=== PATIENT | female | born 1940 | race Caucasian/White ===

== ENCOUNTER 2019-04-13 05:57 | Inpatient (IN) | payer BC, MEDICARE ==
[2019-04-12 10:46] VITALS: BMI 23.3
[2019-04-13] MEDS ORDERED: Midazolam HCl 2 mg/2 ml Vial ONE (06:02)
[2019-04-13] MEDS ORDERED: Phenylephrine HCL 10 MG/ML VIAL ONE (06:02)
[2019-04-13] MEDS ORDERED: Ropivacaine 0.2% HCl/PF 20 ML ONE (06:02)
[2019-04-13] MEDS ORDERED: Fentanyl 100 MCG/2 ML VIAL ONE (06:02)
[2019-04-13] MEDS ORDERED: Lidocaine 2% Jelly 5 ML TUBE ONE (06:02)
[2019-04-13] MEDS ORDERED: Tranexamic Acid 1,000 MG/10 ML VIAL ONE (06:17)
[2019-04-13] MEDS ORDERED: Levofloxacin 500 mg/D5W 100 ml Premix Bag ONE (06:17)
[2019-04-13] MEDS ORDERED: Sodium Chloride 0.9% 100 ML ONE (06:17)
[2019-04-13] MEDS ORDERED: Acetaminophen 500 MG TAB PO PRN (07:34)
[2019-04-13] MEDS ORDERED: Naloxone HCl 0.4 mg/ml Vial IVP PRN (07:45)
[2019-04-13] MEDS ORDERED: Bupivacaine 0.25% 10 ML VIAL EPIDURAL PRN (07:45)
[2019-04-13] MEDS ORDERED: Promethazine HCl 25 MG SUPP PR PRN (07:45)
[2019-04-13] MEDS ORDERED: Promethazine HCl 25 MG/ML VIAL IM PRN ×3 (07:45→08:54)
[2019-04-13] MEDS ORDERED: HYDROcodone/Acetaminophen 5/325 mg Tablet PO PRN ×2 (07:45)
[2019-04-13] MEDS ORDERED: Ondansetron PF 4 MG/2 ML Vial IVP PRN ×2 (07:45→08:54)
[2019-04-13] MEDS ORDERED: Naloxone HCl 0.4 mg/ml Vial IV PRN (07:45)
[2019-04-13] MEDS ORDERED: diphenhydrAMINE 50 MG/ML VIAL IVP PRN (07:45)
[2019-04-13] MEDS ORDERED: Hydrocerin (Eucerin) Cream 120 gm Jar TOP PRN (07:45)
[2019-04-13] MEDS ORDERED: diphenhydrAMINE 50 MG/ML VIAL IM PRN (07:45)
[2019-04-13] MEDS ORDERED: diphenhydrAMINE 25 MG CAP PO PRN ×2 (07:45→08:54)
[2019-04-13] MEDS ORDERED: traMADol HCl 50 MG TAB PO PRN ×2 (07:45)
[2019-04-13] MEDS ORDERED: Meperidine HCl/PF 25 MG/ML VIAL SLOW IVP PRN ×2 (08:50)
[2019-04-13] MEDS ORDERED: Promethazine HCl 25 MG/ML VIAL SLOW IVP PRN (08:50)
[2019-04-13] MEDS ORDERED: Ondansetron HCl/PF 4 MG/2 ML Vial IVP PRN (08:50)
[2019-04-13] MEDS ORDERED: Ketorolac Tromethamine 30 MG/ML VIAL IVP PRN (08:50)
[2019-04-13] MEDS ORDERED: HYDROcodone/Acetaminophen 10/325 mg Tablet PO PRN ×2 (08:54)
[2019-04-13] MEDS ORDERED: Acetaminophen 325 MG TAB PO PRN (08:54)
[2019-04-13] MEDS ORDERED: Zolpidem Tartrate 5 MG TAB PO PRN (08:54)
[2019-04-13] MEDS ORDERED: CALCIUM CARB CIT PO SCH (09:00)
[2019-04-13] MEDS ORDERED: Non-Formulary Item 1 EACH (Multivitamin [Multivitamins] 1 CAP) PO SCH (09:00)
[2019-04-13] MEDS ORDERED: MAGNESIUM OX PO SCH (09:00)
[2019-04-13] MEDS ORDERED: Acetaminophen 500 MG TAB ONE (09:13)
--- NOTE | 2019-04-13 09:13 | RAD ---
2 views right hip: 04/13/2019 COMPARISON: None HISTORY: Evaluate hip following surgery FINDINGS: Postoperative gas is noted lateral to the proximal right femur. Right hip arthroplasty pres ent with no evidence for hardware failure. No acute fracture or dislocation. IMPRESSION: Radiographic evidence of recent right total hip arthroplasty.
[2019-04-13] MEDS ORDERED: Acetaminophen 500 MG TAB PO SCH (09:30)
[2019-04-13] MEDS ORDERED: PHENYLEPHRINE-NS 100 MCG/ML 10 ML SYRINGE ONE (10:02)
[2019-04-13] MEDS ORDERED: Ondansetron PF 4 MG/2 ML Vial ONE ×2 (10:02)
[2019-04-13] MEDS ORDERED: ePHEDrine/0.9% NaCl/PF SYRINGE 50 mg/10 ml ONE (10:02)
[2019-04-13] MEDS ORDERED: Lidocaine 1.5% w/Epi 1:200K 30 ML VIAL (Epid Use) ONE (10:02)
[2019-04-13] MEDS ORDERED: Dexamethasone 20 MG/5 ML VIAL ONE (10:02)
[2019-04-13] MEDS ORDERED: Glycopyrrolate 0.2 MG/ML 5 ML SYRINGE ONE (10:02)
[2019-04-13] MEDS ORDERED: Rocuronium Bromide 10 MG/ML (10ML VIAL) ONE (10:02)
[2019-04-13] MEDS ORDERED: PROPOFOL 200 MG/20 ML VIAL ONE (10:02)
[2019-04-13] MEDS: Aspirin 81 mg Enteric Coated Tablet PO SCH ×2 (10:18→19:57)
[2019-04-13] MEDS: Amlodipine 5 MG TAB PO SCH ×2 (11:04→19:58)
[2019-04-13] MEDS: Ketorolac Tromethamine 30 MG/ML VIAL IVP SCH ×3 (11:46→23:13)
--- NOTE | 2019-04-13 12:33 | PDOC.HOSPP ---
- Subjective Encounter Date: 04/13/19 Encounter Time: 07:45 Subjective: Patient seen and examined. No new complaints. pt is admitted for right hip replacement, done without problem, consulted for medical management, family bedside after surgery, has epidural in place - Objective Vital Signs & Weight: Vital Signs (12 hours) Temp Pulse Resp BP Pulse Ox 04/13/19 09:45 97.5 F L 58 L 18 131/81 96 Weight Weight 128 lb Hospitalist ROS - Review of Systems Constitutional: denies: fever, chills, sweats, weakness, malaise, other Eyes: denies: pain, vision change, conjunctivae inflammation, eyelid inflammation, redness, other ENT: denies: ear pain, ear discharge, nose pain, nose discharge, nose congestion , mouth pain, mouth swelling, throat pain, throat swelling, other Respiratory: denies: cough, dry, shortness of breath, hemoptysis, SOB with excertion, pleuritic pain, sputum, wheezing, other Cardiovascular: denies: chest pain, palpitations, orthopnea, paroxysmal noc. dyspnea, edema, light headedness, other Gastrointestinal: denies: nausea, vomiting, abdominal pain, diarrhea, constipation, melena, hematochezia, other Genitourinary: denies: dysuria, frequency, incontinence, hematuria, retention, other Musculoskeletal: denies: neck pain, shoulder pain, arm pain, back pain, hand pain, leg pain, foot pain, other Skin: denies: rash, lesions, isatu, bruising, other - Medication Medications: Active Medications Generic Name Dose Route Start Last Admin Trade Name Freq PRN Reason Stop Dose Admin Amlodipine Besylate 5 mg 04/13/19 09:00 04/13/19 11:04 Norvasc PO Not Given BID [facility] Aspirin 81 mg 04/13/19 09:00 04/13/19 10:18 Ecotrin PO Not Given BID [facility] Ketorolac Tromethamine 15 mg 04/13/19 12:00 04/13/19 11:46 Toradol IVP 04/15/19 06:01 15 mg Q6HR YOGESH Administration Metoprolol Succinate 50 mg 04/13/19 09:00 04/13/19 11:05 Toprol Xl PO Not Given BID [facility] Sertraline HCl 100 mg 04/13/19 09:00 04/13/19 11:05 Zoloft PO Not Given DAILY YOGESH - Exam General Appearance: NAD, awake alert Eye: PERRL, anicteric sclera ENT: normocephalic atraumatic, no oropharyngeal lesions Neck: supple, symmetric, no JVD, no thyromegaly Heart: RRR, no murmur, no gallops, no rubs, normal peripheral pulses Respiratory: CTAB, no wheezes, no rales, no ronchi Gastrointestinal: soft, non-tender, non-distended, normal bowel sounds Extremities: no cyanosis, no clubbing, no edema Extremities - other findings: surgical site with dressing, epidural in place, navas+ Skin: normal turgor, no lesions Neurological: cranial nerve grossly intact, normal sensation to touch, no focal deficits Musculoskeletal: normal tone, normal strength Psychiatric: normal affect, normal behavior, A&O x 3 Hosp A/P (1) Status post right hip replacement Code(s): Z96.641 - PRESENCE OF RIGHT ARTIFICIAL HIP JOINT Status: Acute (2) Hypertension Code(s): I10 - ESSENTIAL (PRIMARY) HYPERTENSION Status: Chronic (3) Anxiety and depression Code(s): F41.9 - ANXIETY DISORDER, UNSPECIFIED; F32.9 - MAJOR DEPRESSIVE DISORDER, SINGLE EPISODE, UNSPECIFIED Status: Chronic - Plan old records reviewed/req 04/13/19 continue epidural as per anesthesia pt is overall medically stable, discussed with family bedside medication reviewed and continue to provide symptomatic treatment and supportive care
[2019-04-13] MEDS: Losartan 25 MG TAB PO SCH (19:57)
[2019-04-13] MEDS ORDERED: Vancomycin HCl 1 GM in Premix Bag 1 BAG IVPB SCH (20:00)
[2019-04-13] MEDS: fentaNYL Citrate/PF 500 MCG, Bupivacaine 10 ML in Sodium Chloride 0.9% 80 ML EPIDURAL SCH (20:45)
[2019-04-13] MEDS: Zolpidem Tartrate 5 MG TAB PO PRN (20:52)
[2019-04-13] MEDS ORDERED: ZOLPIDEM TARTRATE PO SCH (21:00)
[2019-04-14 05:09] LABS: Hemoglobin 9.8 g/dL (12.0-16.0); Mean Corpuscular HGB CONC 32.9 g/dL (32.0-36.0); Mean Corpuscular Hemoglobin 29.5 pg (27.0-31.0); Mean Corpuscular Volume 89.6 fL (78.0-98.0); Mean Platelet Volume 7.7 fL (7.4-10.4); Platelet Count 163 thou/uL (130-400); RBC Distribution Width 12.3 % (11.5-14.5); Red Blood Cell (RBC) Count 3.33 mill/uL (4.20-5.40); White Blood Cell (WBC) Count 7.9 thou/uL (4.8-10.8)
[2019-04-14] MEDS: Ketorolac Tromethamine 30 MG/ML VIAL IVP SCH ×4 (05:20→23:04)
--- NOTE | 2019-04-14 09:25 | PRG ---
DATE OF SERVICE: 04/14/2019 SUBJECTIVE: Margo is a 78-year-old female, postop day 1 from right total hip arthroplasty. She is doing relatively well, and she is comfortable with her epidural. She has no complaints at this point. OBJECTIVE: VITAL SIGNS: Temperature 98, pulse 71, respiratory rate is 16 and nonlabored, blood pressure is 112/68. GENERAL: She is alert and oriented to person, place, time, and situation. Responds appropriately with examiner. EXTREMITIES: Incision is clean. No erythema. No strike through. No leg length discrepancy. LABORATORY DATA: Hemoglobin and hematocrit 9.8 and 29.8. IMPRESSION: 1. A 78-year-old female, postop day 1, right total hip arthroplasty. 2. Mild postoperative asymptomatic anemia. PLAN: Continue current care. Probable discharge to home tomorrow. Job ID: [id number]
[2019-04-14] MEDS: Aspirin 81 mg Enteric Coated Tablet PO SCH ×2 (09:31→19:48)
[2019-04-14] MEDS: Ferrous Gluconate 324 MG TAB PO SCH ×2 (09:31→17:16)
[2019-04-14] MEDS: Multivitamin W/ Minerals 1 TAB PO SCH (09:32)
[2019-04-14] MEDS: Senokot S 8.6-50 MG TAB PO SCH ×2 (09:32→19:48)
[2019-04-14] MEDS: Amlodipine 5 MG TAB PO SCH ×2 (09:32→19:48)
[2019-04-14] MEDS: fentaNYL Citrate/PF 500 MCG, Bupivacaine 10 ML in Sodium Chloride 0.9% 80 ML EPIDURAL SCH ×2 (10:06→20:28)
--- NOTE | 2019-04-14 10:07 | PDOC.HOSPP ---
- Subjective Encounter Date: 04/14/19 Encounter Time: 08:10 Subjective: Patient seen and examined. No new complaints. No overnight events - Objective Vital Signs & Weight: Vital Signs (12 hours) Temp Pulse Resp BP BP Pulse Ox 04/14/19 09:32 71 04/14/19 07:05 98.0 F 71 16 112/68 04/14/19 05:07 98.3 F 81 14 127/71 93 L 04/14/19 00:11 98.3 F 75 16 122/69 94 L Weight Weight 128 lb I&O: 04/13/19 04/14/19 04/15/19 06:59 06:59 06:59 Intake Total 1725 Output Total 300 Balance 1425 Result Diagrams: 04/14/19 04:38 Hospitalist ROS - Review of Systems ENT: denies: ear pain, ear discharge, nose pain, nose discharge, nose congestion , mouth pain, mouth swelling, throat pain, throat swelling, other Respiratory: denies: cough, dry, shortness of breath, hemoptysis, SOB with excertion, pleuritic pain, sputum, wheezing, other Cardiovascular: denies: chest pain, palpitations, orthopnea, paroxysmal noc. dyspnea, edema, light headedness, other Gastrointestinal: denies: nausea, vomiting, abdominal pain, diarrhea, constipation, melena, hematochezia, other Genitourinary: denies: dysuria, frequency, incontinence, hematuria, retention, other Musculoskeletal: denies: neck pain, shoulder pain, arm pain, back pain, hand pain, leg pain, foot pain, other - Medication Medications: Active Medications Generic Name Dose Route Start Last Admin Trade Name Tien PRN Reason Stop Dose Admin Amlodipine Besylate 5 mg 04/13/19 09:00 04/14/19 09:32 Norvasc PO 5 mg BID YOGESH Administration Aspirin 81 mg 04/13/19 09:00 04/14/19 09:31 Ecotrin PO 81 mg BID YOGESH Administration Ferrous Gluconate 324 mg 04/14/19 08:00 04/14/19 09:31 Fergon PO 324 mg BID-WM YOGESH Administration Fentanyl Citrate 500 mcg/ 100 mls @ 0 mls/hr 04/13/19 07:45 04/13/19 20:45 Bupivacaine HCl 10 ml/ Sodium EPIDURAL 100 mls Chloride INF YOGESH Administration As Directed Iron/Minerals/Multivitamins 1 tab 02/01/20 09:00 04/14/19 09:32 Theragran M PO 1 tab DAILY YOGESH Administration Ketorolac Tromethamine 15 mg 04/13/19 12:00 04/14/19 05:20 Toradol IVP 04/15/19 06:01 15 mg Q6HR YOGESH Administration Losartan Potassium 50 mg 04/13/19 21:00 04/13/19 19:57 Cozaar PO Not Given HS YOGESH Metoprolol Succinate 50 mg 04/13/19 09:00 04/14/19 09:32 Toprol Xl PO 50 mg BID YOGESH Administration Senna/Docusate Sodium 2 tab 04/14/19 09:00 04/14/19 09:32 Senokot S PO 2 tab BID YOGESH Administration Sertraline HCl 100 mg 04/13/19 09:00 04/14/19 09:32 Zoloft PO 100 mg DAILY YOGESH Administration Zolpidem Tartrate 5 mg 04/13/19 07:45 04/13/19 20:52 Ambien PO 5 mg HSPRN PRN Administration Insomnia - Exam General Appearance: NAD, awake alert Eye: PERRL, anicteric sclera ENT: normocephalic atraumatic, no oropharyngeal lesions Neck: supple, symmetric, no JVD, no thyromegaly Heart: RRR, no murmur, no gallops, no rubs, normal peripheral pulses Respiratory: CTAB, no wheezes, no rales, no ronchi, normal chest expansion Gastrointestinal: soft, non-tender, non-distended, normal bowel sounds Extremities: no cyanosis, no clubbing, no edema Skin: normal turgor, no lesions Neurological: no focal deficits Musculoskeletal: normal tone, normal strength, no muscle wasting Psychiatric: normal affect, normal behavior Hosp A/P (1) Status post right hip replacement Code(s): Z96.641 - PRESENCE OF RIGHT ARTIFICIAL HIP JOINT Status: Acute (2) Hypertension Code(s): I10 - ESSENTIAL (PRIMARY) HYPERTENSION Status: Chronic (3) Anxiety and depression Code(s): F41.9 - ANXIETY DISORDER, UNSPECIFIED; F32.9 - MAJOR DEPRESSIVE DISORDER, SINGLE EPISODE, UNSPECIFIED Status: Chronic - Plan old records reviewed/req, PT/OT 04/13/19 continue epidural as per anesthesia pt is overall medically stable, discussed with family bedside medication reviewed and continue to provide symptomatic treatment and supportive care 04/14/19 continue epidural as per anesthesia overall doing better and stable PT/OT
[2019-04-14] MEDS: Losartan 25 MG TAB PO SCH (19:49)
[2019-04-14] MEDS: Zolpidem Tartrate 5 MG TAB PO PRN (20:28)
[2019-04-15 05:37] LABS: Hemoglobin 9.4 g/dL (12.0-16.0); Mean Corpuscular HGB CONC 32.4 g/dL (32.0-36.0); Mean Corpuscular Volume 89.5 fL (78.0-98.0); Mean Platelet Volume 8.2 fL (7.4-10.4); Platelet Count 146 thou/uL (130-400); RBC Distribution Width 12.3 % (11.5-14.5); Red Blood Cell (RBC) Count 3.25 mill/uL (4.20-5.40)
[2019-04-15] MEDS: Ketorolac Tromethamine 30 MG/ML VIAL IVP SCH (06:03)
[2019-04-15] MEDS: Ferrous Gluconate 324 MG TAB PO SCH ×2 (09:00→14:02)
[2019-04-15] MEDS: Aspirin 81 mg Enteric Coated Tablet PO SCH ×2 (09:00→20:20)
[2019-04-15] MEDS: Senokot S 8.6-50 MG TAB PO SCH ×2 (09:01→20:17)
[2019-04-15] MEDS: Multivitamin W/ Minerals 1 TAB PO SCH (09:01)
[2019-04-15] MEDS: Amlodipine 5 MG TAB PO SCH ×2 (09:01→20:20)
[2019-04-15] MEDS: fentaNYL Citrate/PF 500 MCG, Bupivacaine 10 ML in Sodium Chloride 0.9% 80 ML EPIDURAL SCH (09:03)
--- NOTE | 2019-04-15 14:18 | PDOC.HOSPP ---
- Subjective Encounter Date: 04/15/19 Encounter Time: 08:15 Subjective: Patient seen and examined. No new complaints. No overnight events - Objective Vital Signs & Weight: Vital Signs (12 hours) Temp Pulse Resp BP Pulse Ox 04/15/19 12:00 91 L 04/15/19 11:54 98.1 F 65 18 134/60 91 L 04/15/19 09:01 62 04/15/19 08:00 92 L 04/15/19 07:18 98.2 F 62 16 120/75 92 L 04/15/19 03:51 98 F 61 16 104/55 L 92 L Weight Weight 128 lb I&O: 04/14/19 04/15/19 04/16/19 06:59 06:59 06:59 Intake Total 1725 845 Output Total 300 350 Balance 1425 495 Result Diagrams: 04/15/19 05:11 Hospitalist ROS - Review of Systems ENT: denies: ear pain, ear discharge, nose pain, nose discharge, nose congestion , mouth pain, mouth swelling, throat pain, throat swelling, other Respiratory: denies: cough, dry, shortness of breath, hemoptysis, SOB with excertion, pleuritic pain, sputum, wheezing, other Cardiovascular: denies: chest pain, palpitations, orthopnea, paroxysmal noc. dyspnea, edema, light headedness, other Gastrointestinal: denies: nausea, vomiting, abdominal pain, diarrhea, constipation, melena, hematochezia, other Genitourinary: denies: dysuria, frequency, incontinence, hematuria, retention, other Musculoskeletal: denies: neck pain, shoulder pain, arm pain, back pain, hand pain, leg pain, foot pain, other - Medication Medications: Active Medications Generic Name Dose Route Start Last Admin Trade Name Freq PRN Reason Stop Dose Admin Acetaminophen 650 mg 04/13/19 08:54 04/14/19 17:17 Tylenol PO 650 mg Q4H PRN Administration Headache/Fever or Pain Hydrocodone Bitart/Acetaminophen 1 tab 04/13/19 07:45 04/15/19 14:01 [place] 5/325 PO 1 tab Q4H PRN Administration Mild Pain 1-3 Amlodipine Besylate 5 mg 04/13/19 09:00 04/15/19 09:01 Norvasc PO 5 mg BID YOGESH Administration Aspirin 81 mg 04/13/19 09:00 04/15/19 09:00 Ecotrin PO 81 mg BID YOGESH Administration Ferrous Gluconate 324 mg 04/14/19 08:00 04/15/19 14:02 Fergon PO 324 mg BID-WM YOGESH Administration Fentanyl Citrate 500 mcg/ 100 mls @ 0 mls/hr 04/13/19 07:45 04/15/19 09:03 Bupivacaine HCl 10 ml/ Sodium EPIDURAL 100 mls Chloride INF YOGESH Administration As Directed Iron/Minerals/Multivitamins 1 tab 04/14/19 09:00 04/15/19 09:01 Theragran M PO 1 tab DAILY YOGESH Administration Losartan Potassium 50 mg 04/13/19 21:00 04/14/19 19:49 Cozaar PO Not Given HS YOGESH Metoprolol Succinate 50 mg 04/13/19 09:00 04/15/19 09:00 Toprol Xl PO 50 mg BID YOGESH Administration Ondansetron HCl 4 mg 04/13/19 08:54 04/14/19 17:18 Zofran IVP 4 mg Q6H PRN Administration Nausea/Vomiting Senna/Docusate Sodium 2 tab 04/14/19 09:00 04/15/19 09:01 Senokot S PO 2 tab BID YOGESH Administration Sertraline HCl 100 mg 04/13/19 09:00 04/15/19 09:00 Zoloft PO 100 mg DAILY YOGESH Administration Zolpidem Tartrate 5 mg 04/13/19 07:45 04/14/19 20:28 Ambien PO 5 mg HSPRN PRN Administration Insomnia - Exam General Appearance: NAD, awake alert Eye: PERRL, anicteric sclera ENT: normocephalic atraumatic, no oropharyngeal lesions Neck: supple, symmetric, no JVD Heart: RRR, no murmur, no gallops, no rubs Respiratory: CTAB, no wheezes, no rales, no ronchi Gastrointestinal: soft, non-tender, non-distended, normal bowel sounds Extremities: no cyanosis, no clubbing, no edema Skin: normal turgor, no lesions Neurological: no focal deficits Musculoskeletal: normal tone, normal strength Psychiatric: normal affect, normal behavior Hosp A/P (1) Status post right hip replacement Code(s): Z96.641 - PRESENCE OF RIGHT ARTIFICIAL HIP JOINT Status: Acute (2) Hypertension Code(s): I10 - ESSENTIAL (PRIMARY) HYPERTENSION Status: Chronic (3) Anxiety and depression Code(s): F41.9 - ANXIETY DISORDER, UNSPECIFIED; F32.9 - MAJOR DEPRESSIVE DISORDER, SINGLE EPISODE, UNSPECIFIED Status: Chronic - Plan old records reviewed/req 04/13/19 continue epidural as per anesthesia pt is overall medically stable, discussed with family bedside medication reviewed and continue to provide symptomatic treatment and supportive care 04/14/19 continue epidural as per anesthesia overall doing better and stable PT/OT 04/15/19 stable medically discharge per primary team will follow while in hospital
--- NOTE | 2019-04-15 15:09 | PRG ---
DATE OF SERVICE: 04/15/2019 SUBJECTIVE: Margo is a 78-year-old female, postop day 2 from right total hip arthroplasty. At the time of this dictation, she has had her epidural out and Bowman has been removed. She has not urinated at this point but her pains were pretty well controlled. OBJECTIVE: VITAL SIGNS: Temperature 98.1, pulse 65, respiratory rate 18, blood pressure 134/60. GENERAL: She is alert, oriented, responsive and appropriate with examiner. Nonfocal. Incision is clean. No strike through and she is neurovascularly intact. No malrotation or shortening. Hemoglobin and hematocrit 9.4 and 29.9. IMPRESSION: 1. A 78-year-old female, postop day 2, right total hip arthroplasty, doing well. 2. Asymptomatic hemorrhagic anemia. PLAN: Continue current care. We will keep her over tonight to establish good oral pain control. Also make sure she urinates which she has not done yet and recheck in the morning and probable discharge to home with family tomorrow. Job ID: [id number]
[2019-04-15] MEDS: Losartan 25 MG TAB PO SCH (20:20)
[2019-04-15] MEDS: Zolpidem Tartrate 5 MG TAB PO PRN (20:20)
[2019-04-16 05:21] LABS: Mean Corpuscular HGB CONC 32.2 g/dL (32.0-36.0); Mean Corpuscular Hemoglobin 28.4 pg (27.0-31.0); Mean Corpuscular Volume 88.1 fL (78.0-98.0); Mean Platelet Volume 8.6 fL (7.4-10.4); Platelet Count 174 thou/uL (130-400); RBC Distribution Width 12.3 % (11.5-14.5); Red Blood Cell (RBC) Count 3.53 mill/uL (4.20-5.40); White Blood Cell (WBC) Count 11.6 thou/uL (4.8-10.8)
[2019-04-16] MEDS: Amlodipine 5 MG TAB PO SCH ×2 (08:33→12:15)
[2019-04-16] MEDS: Ferrous Gluconate 324 MG TAB PO SCH (08:33)
[2019-04-16] MEDS: Aspirin 81 mg Enteric Coated Tablet PO SCH (08:33)
[2019-04-16] MEDS: Multivitamin W/ Minerals 1 TAB PO SCH (08:33)
[2019-04-16] MEDS: Senokot S 8.6-50 MG TAB PO SCH (08:34)
--- NOTE | 2019-04-16 10:51 | PDOC.HOSPP ---
- Subjective Encounter Date: 04/16/19 Encounter Time: 07:50 Subjective: Patient seen and examined. No new complaints. No overnight events - Objective Vital Signs & Weight: Vital Signs (12 hours) Temp Pulse Resp BP Pulse Ox 04/16/19 08:45 98.3 F 61 18 105/64 95 04/16/19 03:56 98.3 F 65 16 103/56 L 93 L 04/15/19 23:51 99.3 F 77 16 136/66 95 Weight Weight 128 lb I&O: 04/15/19 04/16/19 04/17/19 06:59 06:59 06:59 Intake Total 845 1610 Output Total 350 550 Balance 495 1060 Result Diagrams: 04/16/19 04:57 Hospitalist ROS - Review of Systems ENT: denies: ear pain, ear discharge, nose pain, nose discharge, nose congestion , mouth pain, mouth swelling, throat pain, throat swelling, other Respiratory: denies: cough, dry, shortness of breath, hemoptysis, SOB with excertion, pleuritic pain, sputum, wheezing, other Cardiovascular: denies: chest pain, palpitations, orthopnea, paroxysmal noc. dyspnea, edema, light headedness, other Gastrointestinal: denies: nausea, vomiting, abdominal pain, diarrhea, constipation, melena, hematochezia, other Genitourinary: denies: dysuria, frequency, incontinence, hematuria, retention, other Musculoskeletal: denies: neck pain, shoulder pain, arm pain, back pain, hand pain, leg pain, foot pain, other - Medication Medications: Active Medications Generic Name Dose Route Start Last Admin Trade Name Freq PRN Reason Stop Dose Admin Acetaminophen 650 mg 04/13/19 08:54 04/14/19 17:17 Tylenol PO 650 mg Q4H PRN Administration Headache/Fever or Pain Hydrocodone Bitart/Acetaminophen 1 tab 04/13/19 07:45 04/15/19 14:01 [place] 5/325 PO 1 tab Q4H PRN Administration Mild Pain 1-3 Hydrocodone Bitart/Acetaminophen 2 tab 04/13/19 07:45 04/15/19 22:05 [place] 5/325 PO 2 tab Q4H PRN Administration For Moderate Pain 4-6 Amlodipine Besylate 5 mg 04/13/19 09:00 04/15/19 20:20 Norvasc PO 5 mg BID YOGESH Administration Aspirin 81 mg 04/13/19 09:00 04/16/19 08:33 Ecotrin PO 81 mg BID YOGESH Administration Diphenhydramine HCl 25 mg 04/13/19 07:45 04/15/19 20:20 Benadryl PO 25 mg Q3H PRN Administration Itching Ferrous Gluconate 324 mg 04/14/19 08:00 04/16/19 08:33 Fergon PO 324 mg BID-WM YOGESH Administration Fentanyl Citrate 500 mcg/ 100 mls @ 0 mls/hr 04/13/19 07:45 04/15/19 09:03 Bupivacaine HCl 10 ml/ Sodium EPIDURAL 100 mls Chloride INF YOGESH Administration As Directed Iron/Minerals/Multivitamins 1 tab 04/14/19 09:00 04/16/19 08:33 Theragran M PO 1 tab DAILY YOGESH Administration Losartan Potassium 50 mg 04/13/19 21:00 04/15/19 20:20 Cozaar PO 50 mg HS YOGESH Administration Metoprolol Succinate 50 mg 04/13/19 09:00 04/15/19 20:20 Toprol Xl PO 50 mg BID YOGESH Administration Ondansetron HCl 4 mg 04/13/19 08:54 04/14/19 17:18 Zofran IVP 4 mg Q6H PRN Administration Nausea/Vomiting Senna/Docusate Sodium 2 tab 04/14/19 09:00 04/16/19 08:34 Senokot S PO Not Given BID YOGESH Sertraline HCl 100 mg 04/13/19 09:00 04/16/19 08:33 Zoloft PO 100 mg DAILY YOGESH Administration Zolpidem Tartrate 5 mg 04/13/19 07:45 04/15/19 20:20 Ambien PO 5 mg HSPRN PRN Administration Insomnia - Exam General Appearance: NAD, awake alert Eye: PERRL, anicteric sclera ENT: normocephalic atraumatic, no oropharyngeal lesions Neck: supple, symmetric, no JVD Heart: RRR, no murmur, no gallops, no rubs Respiratory: CTAB, no wheezes, no rales, no ronchi Gastrointestinal: soft, non-tender, non-distended, normal bowel sounds Extremities: no cyanosis, no clubbing, no edema Skin: normal turgor, no lesions Neurological: no focal deficits Musculoskeletal: normal tone, normal strength Psychiatric: normal affect, normal behavior Hosp A/P (1) Status post right hip replacement Code(s): Z96.641 - PRESENCE OF RIGHT ARTIFICIAL HIP JOINT Status: Acute (2) Hypertension Code(s): I10 - ESSENTIAL (PRIMARY) HYPERTENSION Status: Chronic (3) Anxiety and depression Code(s): F41.9 - ANXIETY DISORDER, UNSPECIFIED; F32.9 - MAJOR DEPRESSIVE DISORDER, SINGLE EPISODE, UNSPECIFIED Status: Chronic - Plan old records reviewed/req, PT/OT 04/13/19 continue epidural as per anesthesia pt is overall medically stable, discussed with family bedside medication reviewed and continue to provide symptomatic treatment and supportive care 04/14/19 continue epidural as per anesthesia overall doing better and stable PT/OT 04/15/19 stable medically discharge per primary team will follow while in hospital 04/16/19 stable for dc will sign off
[2019-04-16 11:09] VITALS: BP 121/62; TEMP 97.8
--- NOTE | 2019-04-16 12:12 | DIS ---
DATE OF ADMISSION: 04/13/2019 DATE OF DISCHARGE: 04/16/2019 PRIMARY CARE PHYSICIAN: Dr. Randal Castillo. DISCHARGE DISPOSITION: Home with Home Health. PRIMARY DISCHARGE DIAGNOSIS: Status post total right hip replacement on the right side. SECONDARY DISCHARGE DIAGNOSES: 1. Hypertension. 2. Anxiety. 3. Depression. PRIMARY PROCEDURE/OPERATION: Right hip replacement by Dr. Turner. RADIOLOGICAL INVESTIGATION: Hip x-ray. SIGNIFICANT LABORATORY DATA: WBC 11.6, hemoglobin 10.0, platelet 174. DISCHARGE MEDICATIONS: 1. Amlodipine 5 mg p.o. b.i.d. 2. Calcium with vitamin D one tablet p.o. daily. 3. [place] 1 tablet b.i.d. p.r.n. 4. Toprol-XL 50 mg b.i.d. 5. Multivitamin 1 tablet daily. 6. Zoloft 100 mg daily. 7. Telmisartan 40 mg p.o. at bedtime. 8. Ambien 10 mg at bedtime. 9. Aspirin 81 mg p.o. b.i.d. 10. [place] 5/325 one or two tablets q.4 hourly p.r.n. CONTRAINDICATION: None. CODE STATUS: Full code. 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 Turner was primary while in hospital. Sound Team was consulted for medical comanagement. TEST RESULTS PENDING ON DISCHARGE: None. ALLERGIES: PENICILLIN. DISCHARGE PLAN: Post hospital, the patient has appointment with Dr. Turner in 2-3 weeks. The patient will follow up with primary care physician. HOSPITAL COURSE: A 78-year-old female with above-mentioned medical problem, who was admitted electively by Dr. Turner. Please see his H and P for further details. The patient was admitted for right hip replacement which was done on April 13, 2019. Postoperatively, [facility] Medical Team was consulted for medical comanagement. The patient's medical problems remained stable. She had an epidural while in hospital. The patient did very well with physical therapy and today the patient is planned for discharge. The patient is seen and examined at bedside today. The patient will continue all her previous medication as per previous. Please see my progress note from today for further detail. Job ID: [id number]
--- NOTE | 2019-04-17 14:45 | OP ---
DATE OF PROCEDURE: 04/13/2019 TITLE OF PROCEDURE: Right total hip arthroplasty using a Wiley Accolade II stem with a Tritanium socket and X3 polyethylene. SEGREGATOR: Duong Hewitt PA-C BLOOD LOSS: Minimal. SPECIMENS: None. DRAINS: None. COMPLICATIONS: None. PROCEDURE IN DETAIL: After informed consent was obtained in the preoperative holding area, the patient was taken to the operative suite where general anesthesia was induced. The patient was then positioned in the lateral decubitus position. The hip was then prepped and draped in usual sterile fashion. The patient received preoperative antibiotics. Prior to incision, time-out was called and all members of the surgical team agreed upon site, surgeon, and patient. After this, a longitudinal incision was made directly over the trochanter, noted by palpation extending 2 fingerbreadths above and below the trochanter. The deeper subcutaneous layer was undermined with Bovie electrocautery. The iliotibial band was encountered and incised sharply and the plane below this was developed bluntly. A Charnley retractor was placed to hold this opened. The lateral aspect of the trochanter and the abductor muscles were encountered and then reflected anteriorly off the trochanter using Bovie electrocautery. Once this was completed, the anterior capsule was then encountered and identified and copious capsulotomy was carried out, exposing the femoral neck and head. Dislocation maneuver was then performed and an in situ provisional neck cut was then made using the oscillating saw. Attention was then turned to acetabular preparation and sequential reaming was carried out up to the appropriate diameter. A trial was then malleted into place with good firm resistance and no pullout. The permanent acetabular shell was then malleted squarely into place, as was the appropriate liner. Once completed, the wound was copiously irrigated and attention was then turned to femoral preparation. Flexion and external rotation were performed of the exposed thigh and femoral elevators were then placed at the proximal aspect of the wound. Canal finder was used to establish the length of the canal and sequential reaming was carried out, followed by broaching. Once the appropriate stability was established with the trial broaches with flexion, extension and rotational stability, we did trial with neutral and 2 mm offset incremental necks. Once the appropriate size was decided upon, with good stability noted with flexion, extension, internal and external rotation and shuck being negative, we removed the femoral trial broach and malletted into place the permanent prosthesis with good firm fit, which was also stable to rotation. Again, the hip felt very stable to flexion, extension, internal and external rotation. Leg lengths appeared near anatomic clinically and we were quite happy with prosthesis placement. Copious irrigation was then carried out through the entirety of the wound. Primary closure of the abductors was accomplished with interrupted #2 Vicryl [id number] stitches and the IT band was then closed with interrupted #2 Vicryl, oversewn with a #2 running barbed Quill stitch. Subcutaneous fascia was closed with running barbed Quill stitch and a subcuticular Monocryl barbed Quill stitch was used for skin closure and augmented with skin cement. A sterile dressing was applied. The procedure was terminated without any complication. All counts were correct. The patient was awakened in the operative suite and taken to the recovery room in stable condition. Job ID: [id number]
== END 2019-04-16 12:50 | disposition home health service (06) | DRG 470 ==
LOC: SURG A 05:57
PROVIDERS: ADMIT Orthopaedic Surgery; ATTEND Orthopaedic Surgery
PROC: 0SR902Z Replacement of Right Hip Joint with Metal on Polyethylene Synthetic Substitute, Open Approach (ICD-10-PCS; principal; 2019-04-13)
DX: M87.051 Idiopathic aseptic necrosis of right femur (principal); I10 Essential (primary) hypertension; F41.9 Anxiety disorder, unspecified; F32.9 Major depressive disorder, single episode, unspecified; Z88.0 Allergy status to penicillin; D50.0 Iron deficiency anemia secondary to blood loss (chronic)
CPT/HCPCS: 36415; 85027; J1100; J1885; J1956; J2001; J2250; J2370; J2405; J2704; J2795; J3010; J3370; J3490; Q0163

== ENCOUNTER 2019-08-25 17:08 | Inpatient (IN) | payer BC, MEDICARE ==
[2019-08-25] MEDS ORDERED: Acetaminophen 650 MG Suppository PR PRN (18:47)
[2019-08-25] MEDS ORDERED: Promethazine HCl 12.5 MG in Sodium Chloride 0.9% 50 ML IVPB PRN (18:57)
[2019-08-25] MEDS ORDERED: Lorazepam 2 MG/ML VIAL SLOW IVP SCH (19:00)
[2019-08-25] MEDS ORDERED: Potassium Chloride 40 MEQ in Sodium Chloride 0.9% 250 ML 250 ML IVPB SCH (19:00)
--- NOTE | 2019-08-25 20:11 | HP ---
PRIMARY CARE PHYSICIAN: Dr. Lv Pina. CHIEF COMPLAINT: Intractable nausea, vomiting, and epigastric pain for the past week. HISTORY OF PRESENT ILLNESS: The patient is a 78-year-old female, with past medical history significant for hiatal hernia, multiple back surgeries, hypertension, and depression, who presents to the ER for the above complaint. The patient reports over the past eight days, she has developed persistent nausea and vomiting with associated epigastric pain. She has been to the ER two times in the past week for the same symptoms in [place]. First ER visit, she was given IV fluids and Zofran and discharged to home after symptoms improved. The next day her symptoms returned, so she went to the ER in [place] for a second time and was admitted into the hospital. She had a CT of her abdomen that showed a single gallstone. She was eventually discharged home with a scheduled ultrasound of the gallbladder, outpatient, which she she says did not show any gallstones. Since she has had persistent symptoms of feeling nauseated and vomiting and epigastric pain. The pain is dull and aching. It is constant. It is exacerbated with the intake of food. She is able to tolerate liquids, drinking primarily Gatorade, tea, and she has eaten some applesauce. She has lost 12 lbs. in the past week. She denies any dysphagia or hematemesis. She denies any fever or chills. She reports having a few loose stools, but she thinks it is related to drinking Gatorade. She denies any blood or mucous in her stools. She has not been on any recent antibiotics. The patient also reports that she has had several surgeries since the beginning of this year. In March, she suffered a mechanical fall. She wound up having an ORIF of the right hip by Dr. Turner and subsequent back surgeries for some lumbar stress fractures and a sacroplasty. Her last back surgery was in August. Her son, who was at bedside, reports that these surgeries have affected her mentally. She is a very independent, stating that she loves to work in the yard and go fishing. She feels like she is losing her independence. For these reasons, she was started on Effexor 2 days ago by her PCP. Her son really feels that she is having difficulty coping with the loss of her independence. He thinks that her symptoms are more likely related to her being stressed. The patient is in agreement. She reports that she is not sleeping. She has not been eating over the past week. She has lost 12 pounds. Her best friend, just lost a loved -one and that is "weighing on me too". In the ER at [place], patient presented hypertensive with a normal pulse, normal respirations, reported 7 of 10 pain. EKG was normal sinus rhythm. Troponin was negative. CT of the abdomen with contrast was unremarkable for any acute process. Her lactic acid was 0.9. Her CRP was 0.50. She did have a sodium of 126 and a potassium of 3.2. Her lipase was 64 and her LFTs were within normal limits. UA had 2+ bacteria. There was no pus. The patient denies any recent fever or chills. The patient denies any chest pain, heart palpitation, or lower extremity swelling. Patient denies any recent shortness of breath or cough. The patient denies any dysuria or vaginal discharge. The patient was given 1 L of normal saline, Reglan 10 mg, Toradol 30 mg, and morphine 4 with relief of her nausea, but she still reports some back pain. PAST MEDICAL HISTORY: 1. Hypertension. 2. Depression. 3. Hiatal hernia. SURGICAL HISTORY: 1. Patient has had right hip ORIF in March of 2019. 2. Back surgeries x2. 3. Appendectomy. 4. Hysterectomy. SOCIAL HISTORY: The patient lives alone at home. She denies any history of alcohol, smoking, or illicit drug use. She works for the [employer] and it will be her 50th anniversary this year. FAMILY HISTORY: Noncontributory to this case. ALLERGIES: PENICILLIN. HOME MEDICATIONS: 1. Metoprolol tartrate 50 mg p.o. b.i.d. 2. Telmisartan 20 mg at bedtime. 3. Amlodipine 5mg po daily. 4. Effexor 75 mg p.o. daily. 5. Ambien 10 mg p.o. daily. REVIEW OF SYSTEMS: All other review of systems are negative unless otherwise noted in the HPI. PHYSICAL EXAMINATION: VITAL SIGNS: Temperature 98.5, blood pressure 165/106, heart rate 82, respiratory rate 16, and SpO2 is 97% on room air. Pain scale 7 of 10. CONSTITUTIONAL: Patient is alert and oriented to person, place, and time, in no acute distress. Nontoxic appearing. HEAD: Atraumatic and normocephalic. EYES: PERRLA. Extraocular muscles intact. Sclerae nonicteric. ENT: Nares are patent bilaterally. Oropharynx is clear. Dry mucous membranes. Uvula midline. NECK: Supple. Trachea midline. No cervical lymphadenopathy. RESPIRATORY: Respirations are even and nonlabored. Clear to auscultation. No rhonchi or wheezes or rales. CARDIOVASCULAR: S1, S2 appreciated. Regular rate and rhythm. No murmurs, rubs , or gallops. ABDOMEN: Female with soft, nontender to palpation. Active bowel sounds. No guarding. No rigidity. No rebound tenderness. Negative Sanders sign. BACK: Full range of motion. No central spinous tenderness. No CVA tenderness. EXTREMITIES: Upper extremities, normal range of motion and normal strength. Palpable radial pulses. Brisk cap refill. Lower extremities, normal range of motion. Normal strength. Palpable pedal pulses. No swelling. NEUROLOGIC: Patient is alert and oriented to person, place, and time. She appears mildly anxious. SKIN: Clean, dry, and intact. PSYCHIATRIC: Positive for depression. Denies any suicidal or homicidal ideation. LABORATORIES AND DIAGNOSTICS: EKG, normal sinus rhythm. Troponin was negative. CT of the abdomen with contrast was negative for any acute process. Lactic acid is 0.9. CRP is 0.50. Sodium 126, potassium 3.2, chloride 90, CO2 is 21, BUN 6, creatinine 0.71, glucose 103, lipase 64, total bilirubin 0.7, AST 18, and ALT 14. UA had 2+ bacteria. WBC 4.5, hemoglobin 13.5, hematocrit 41.7, and platelets 244. IMPRESSION AND PLAN: 1. Intractable vomiting. We will admit the patient to medical floor, observation status. Expected length of stay less than two midnights. The patient presented to the [facility] hypertensive with a regular respirations and heart rate. CT of the abdomen was unremarkable for any acute process. She recently had a gallbladder ultrasound outpatient, which was negative for any stones. Her liver enzymes were within normal limits. Her lipase was 64. The patient reports decreased p.o. intake and and weight loss of 12 pounds in past week. We will order a HIDA scan. We will place her on clear liquid diet. We will give Phenergan p.r.n. for nausea. We will give IV fluids. We will recheck labs in the a.m. UA was 2+ bacteria. There was no pus. She is asymptomatic. We will send urine for culture. 2. Hyponatremia, 126. Patient is alert and oriented x4, likely secondary to volume depletion. We will check serum osmolality, urine osmolality, and urine sodium. We will give IV fluids and we will recheck levels in the a.m. 3. Hypokalemia, mild, 3.2, likely related to emesis. We will give 40 mEq IV piggyback x1. Check a Mag level and recheck levels in a.m. 4. Back pain. Patient has had multiple surgeries since March of 2019. She had a right hip open reduction internal fixation after a mechanical fall and then subsequent back surgeries to her lumbar spine and sacrum. This has caused her to lose independence and caused her to be anxious and depressed. She admits to excessive worry lack of sleep and lack of appetite. Her son also agrees. She was recently started on Effexor by her PCP. Will continue Effexor home dose. 5. Hypertension, chronic. Patient takes metoprolol, telmisartan, and amlodipine. We will restart home medications when patient's home medications are reconciled by nursing. 6. Depression and anxiety. We will continue her Effexor. She denies any suicidal or homicidal ideation at this time. 7. SCDs for deep venous thrombosis prophylaxis. No pharmacoprophylaxis related to fall risk. Pepcid for gastrointestinal prophylaxis. 8. Patient is a full code. MPOA is Jose Dimas, her son. His number is [phone]. 9. Discussed case with Dr. Perez. Job ID: [id number] MTDD
[2019-08-25 20:24] VITALS: BMI 21.3
[2019-08-25] MEDS ORDERED: Ondansetron PF 4 MG/2 ML Vial IVP PRN (20:57)
[2019-08-25] MEDS ORDERED: Famotidine 20 MG TAB PO SCH (21:00)
[2019-08-25] MEDS: Sodium Chloride 0.9% 1,000 ML IV SCH (21:01)
[2019-08-25] MEDS: Amlodipine 5 MG TAB PO SCH (21:43)
[2019-08-25] MEDS: Zolpidem Tartrate 5 MG TAB PO SCH (21:47)
[2019-08-25] MEDS: Famotidine/PF 20 mg/2ml Vial SLOW IVP SCH (21:47)
[2019-08-25] MEDS: Losartan 25 MG TAB PO SCH (21:47)
[2019-08-25 22:05] LABS: Amphetamine Not Detected (NotDetected); Barbiturates Screen Not Detected (NotDetected); Benzodiazepine Screen Not Detected (NotDetected); Cocaine Metabolite Screen Not Detected (NotDetected); Medtox Control Line Valid? VALID (VALID); Medtox Reader # READER 4; Methadone Not Detected (NotDetected); Methamphetamine Not Detected (NotDetected); Opiate Screen Detected (NotDetected); Oxycodone Screen Not Detected (NotDetected); Phencyclidine (PCP) Detected (NotDetected); THC/Cannabinoid Screen Not Detected (NotDetected); Tricyclic Screen Not Detected (NotDetected)
[2019-08-26 06:02] LABS: ALT (SGPT) 7 U/L (8-55); AST (SGOT) 14 U/L (5-34); Albumin 3.6 g/dL (3.4-4.8); Alkaline Phosphatase 130 U/L (40-110); Anion Gap 11 mmol/L (10-20); BUN (Urea Nitrogen) 7 mg/dL (9.8-20.1); Bilirubin, Total 0.5 mg/dL (0.2-1.2); Calc. Creatinine Clearance 49 mL/min (70-130); Calcium 8.4 mg/dL (7.8-10.44); Carbon Dioxide 24 mmol/L (23-31); Chloride 98 mmol/L (98-107); Estimated GFR-MDRD 70; Globulin 2.2 g/dL (2.4-3.5); Glucose 76 mg/dL (83-110); Potassium 3.4 mmol/L (3.5-5.1); Protein, Total 5.8 g/dL (6.0-8.3); Sodium 130 mmol/L (136-145)
[2019-08-26 06:05] LABS: Hemoglobin 12.7 g/dL (12.0-16.0); Lymphocytes 33 % (21-51); MDiff Complete? YES; Mean Corpuscular Hemoglobin 29.1 pg (27.0-31.0); Mean Corpuscular Volume 85.5 fL (78.0-98.0); Monocytes 30 % (0-10); Neutrophil 36 % (42-75); Platelet Count 187 thou/uL (130-400); Platelet Morphology Comment Appears Adequate; RBC Distribution Width 12.8 % (11.5-14.5); RBC Morphology Normal; Red Blood Cell (RBC) Count 4.37 mill/uL (4.20-5.40); White Blood Cell (WBC) Count 4.1 thou/uL (4.8-10.8)
[2019-08-26] MEDS: Sodium Chloride 0.9% 1,000 ML IV SCH (08:35)
[2019-08-26] MEDS: Famotidine/PF 20 mg/2ml Vial SLOW IVP SCH (09:51)
[2019-08-26] MEDS ORDERED: Lorazepam 2 MG/ML VIAL SLOW IVP SCH (11:15)
--- NOTE | 2019-08-26 17:15 | PRG ---
DATE OF SERVICE: 08/26/2019 SUBJECTIVE: A 78-year-old female with hiatal hernia, presented to the hospital with intractable nausea, vomiting, and epigastric pain for more than 1 week. She has lost 12 pounds weight. She denies new complaints at this time. Nausea is controlled on current medications. She is waiting for HIDA scan. OBJECTIVE: VITAL SIGNS: Temperature 98.6, pulse rate of 77, respirations of 20, blood pressure of 154/84, O2 saturation 99% on room air. GENERAL: A 78-year-old female in no apparent distress. LUNGS: Clear to auscultation bilaterally. No wheezing, rales, rhonchi. HEART: S1, S2 present. Regular rate and rhythm. No rubs or gallops. ABDOMEN: Soft. Mild generalized tenderness without any guarding, rigidity. No rebound. EXTREMITIES: No edema or calf tenderness. NEUROLOGIC: Grossly nonfocal. LABORATORY FINDINGS: CBC showed WBC 4.1 with hemoglobin of 12.7, hematocrit 37.4. Chemistry showed sodium 130, potassium 3.4, chloride 98, bicarb 24, BUN 7, creatinine 0.79, total bilirubin 0.5, AST of 14, alkaline phosphatase 130, serum osmolality was 267. Urine osmolality was 531. Urine sodium was 26. Urine culture showed gram-negative ronak. Urinalysis showed 2+ bacteria without any wbcs. CT scan of the abdomen by my review was negative for acute findings. IMPRESSION: 1. Intractable nausea, vomiting with abdominal discomfort of unclear etiology. 2. 12 pounds weight loss with inability to maintain oral intake. 3. Dehydration with hyponatremia and hypokalemia. Her sodium on admission was 126. 4. Chronic low back pain. 5. Degenerative joint disease. 6. Hypertension. 7. Anxiety. PLAN: The patient is currently scheduled for HIDA scan. We will start her on IV PPIs. We will recheck labs in a.m. Continue IV hydration. Recheck LFTs in a.m. We will consider GI evaluation based on the HIDA scan. The patient understands the above plan of care. Job ID: [id number]
--- NOTE | 2019-08-26 18:13 | NM ---
NUCLEAR MEDICINE HEPATOBILIARY SCAN: DATE: 08/26/2019 HISTORY: 78-year-old female with abdominal pain TECHNIQUE: Pretreatment Kinevac (CCK analog) dose: 1 mcg. Technetium 99m-mebrofenin dose: 5 mCi. Second Kinevac (CCK analog) dose: 1 mcg. Because the patient was NPO for long period time, she was pretreated with CCK Tc 99- mebrofenin injected IV. Dynamic anterior scintigraphy of abdomen for one hour. Kinevac injecte d. Additional dynamic anterior scintigraphy of abdomen. FINDINGS: Hepatic activity: Liver fills and washes out normally. Bowel activity: Visualized at appropriate time. nuclear cardiology technologist identified a structure at midline at hepatic hilum directly inferior to the common hepatic duct as the gallbladder, and obtained the additional images after the second dose of CCK. However, when compared to the position of the gallbladder on the CT of 08/25/2019, that s tructure was probably the common bile duct rather than the gallbladder. The gallbladder is located to the right of that on the CT. The gallbladder never fills with mebrofenin. IMPRESSION: The gallbladder probably does not fill with mebrofenin, which would indicate all bladder dysfunction.
[2019-08-26] MEDS: NS 0.9% w/ 20 MEQ KCL 1,000 ML/1,000 ML BAG IV SCH ×2 (19:15→20:38)
[2019-08-26] MEDS ORDERED: Ketorolac Tromethamine 30 MG/ML VIAL IVP SCH (19:30)
[2019-08-26] MEDS: Zolpidem Tartrate 5 MG TAB PO SCH (20:34)
[2019-08-26] MEDS: Losartan 25 MG TAB PO SCH (20:34)
[2019-08-26] MEDS: Amlodipine 5 MG TAB PO SCH (20:34)
[2019-08-26] MEDS: Pantoprazole 40 MG VIAL IVP SCH (20:35)
[2019-08-27] MEDS: NS 0.9% w/ 20 MEQ KCL 1,000 ML/1,000 ML BAG IV SCH (08:48)
[2019-08-27] MEDS: Pantoprazole 40 MG VIAL IVP SCH ×2 (08:52→21:08)
--- NOTE | 2019-08-27 14:13 | CON ---
DATE OF CONSULTATION: 08/27/2019 REASON FOR CONSULTATION: Nausea, vomiting, and weight loss. CONSULTING PROVIDER: León Raygoza MD HISTORY OF PRESENT ILLNESS: The patient is a 78-year-old female with past medical history of hypertension, depression, hiatal hernia seen on prior imaging, and multiple back surgeries with a recent right hip fracture, presenting with complaints of nausea, vomiting, and associated weight loss. She states that earlier this year she sustained a right hip fracture, for which she underwent internal fixation and more recently had been having increased lower back pain, for which the patient underwent kyphoplasty in 06/2019 as well as most recently on 08/15/2019. Approximately 2 days after her most recent kyphoplasty, she began to experience an increased metallic taste in her mouth, that was associated with increased nausea and vomiting. With her episodes of nausea and vomiting, she had approximately 2 to 3 episodes of vomiting per day and associated with constant nausea during this time. However, over the course of the last 7 to 10 days, she states that the nausea has persisted, although her last episode of vomiting was approximately 1 week ago. Upon further questioning the patient, she states that she had been on Zoloft for the last 10 years, that was stopped suddenly approximately 1 or 2 weeks ago in favor of changing the patient to Effexor as an outpatient. She was also placed on narcotic medications in the postoperative period related to her kyphoplasty, but had not been taking any of those medications at home, instead the patient had been taking naproxen at least once daily, if not once every 1 to 2 days for better management of her pain. She also states that she has been having increased dysphagia type symptoms, characterized by the sensation that food is having difficulty at the level of the cricoid cartilage, but relates this more to increased sinus drainage with improvement of her dysphagia with improvement of her nasal congestion. Otherwise, she also endorses a weight loss of approximately 25 to 30 pounds since 03/2019. She has been hospitalized on multiple occasions during the same time period as well. Otherwise, she denies any fevers, chills, hematemesis, melena, hematochezia, odynophagia, diarrhea, or constipation. Of note, during the course of this hospitalization, the patient was placed on PPIs for acid reflux in addition to antinausea medication and has had significant improvement in her symptoms to the point where the patient was asking for food today. REVIEW OF SYSTEMS: A 10-category review of systems was taken with all responses negative except for the pertinent positives except those listed in HPI. PAST MEDICAL HISTORY: As per HPI. PAST SURGICAL HISTORY: 1. Right hip internal fixation in 03/2019. 2. Back surgery x2 with the most recent on 08/15/2019. 3. Appendectomy. 4. Hysterectomy. FAMILY HISTORY: Denies any GI malignancies. SOCIAL HISTORY: Denies any tobacco, alcohol, or illicit drug use. OUTPATIENT MEDICATIONS: Reviewed. ALLERGIES: PENICILLIN. PHYSICAL EXAMINATION: VITAL SIGNS: Temperature 98.1, pulse 87, blood pressure 168/90, respiratory rate 16, and saturating 97% on room air. GENERAL: The patient was sitting in a chair at bedside, in no acute distress. Alert and oriented x4. HEENT: Normocephalic and atraumatic. Neck is supple. No JVD or scleral icterus noted. CARDIOVASCULAR: Regular rate and rhythm with no discernable murmurs, gallops, or rubs. RESPIRATORY: Clear to auscultation bilaterally with no discernable wheezes or rales. ABDOMEN: Normoactive bowel sounds. Soft, nontender, and nondistended. EXTREMITIES: No cyanosis, clubbing, or edema. LABORATORY DATA: CBC with a white blood cell count of 4.1, hemoglobin 12.7, hematocrit 37.4, and platelets 187. Chemistry with a sodium of 130, potassium 3.4, chloride 98, CO2 of 28, BUN 7, creatinine 0.79, and glucose 76. AST 14, ALT 7, alkaline phosphatase 130, total bilirubin 0.5, and albumin 3.6. Urinalysis showing 2+ bacteria with urine culture positive for gram-negative rods, suspicious for urinary tract infection. IMAGING DATA: Acute abdominal series was obtained on 08/18/2014, which did not show any acute abnormalities. A CT scan of the abdomen and pelvis was obtained on 08/25/2019, which also showed normal findings with no evidence of pancreatitis or cholecystitis. A HIDA scan was ultimately performed on 08/25/2019 (presumably due to the elevated alkaline phosphatase) also with normal findings on the addendum. ASSESSMENT AND PLAN: The patient is a 78-year-old female with past medical history of hypertension, depression, hiatal hernia with possible gastroesophageal reflux, multiple back surgeries, and right hip fracture status post internal fixation, presenting with persistent nausea and mild vomiting. Nausea and vomiting: The patient recently underwent kyphoplasty of her vertebral spine on 08/15/2019, with increased nausea in the postoperative period, that ultimately culminated in increased episodes of vomiting approximately 2 days after the actual procedure itself. She had been sent home with narcotic medications, but the patient denies any regular use of those medications, but rather favored the use of naproxen for pain relief during the same time. Over the next week, the patient had constant nausea and intermittent episodes of vomiting with her last episode of vomiting occurring approximately 1 week ago. Also during the same time period that the patient was suddenly stopped from taking Zoloft (for which the patient had been taking for the last 10 years) and changed to Effexor for better control of her depressive type symptoms, although the Effexor was changed after the onset of the nausea and the vomiting. At this time, the differential for her nausea and vomiting could include sudden withdrawal of SSRIs, recent start of an SNRI that can generate hyponatremia, nausea and vomiting, gastroesophageal reflux disease secondary to hiatal hernia, intracranial abnormality (less likely given lack of neurological findings), gastritis, peptic ulcer disease, and/or gastrointestinal neoplasm (less likely). RECOMMENDATIONS: 1. Would continue the patient on PPI 40 mg b.i.d. in light of probable acid reflux contributing to her symptoms secondary to a hiatal hernia. 2. Would continue with Zofran as needed for antiemetic control. 3. Would avoid any NSAIDs during this hospitalization. 4. Could consider discontinuation of the venlafaxine as it could generate some of the symptoms and laboratory findings. 5. I do not think operative evaluation for cholecystitis is indicated given her imaging and laboratory findings at this time. 6. Given her improvement in symptoms with PPI and antiemetic administration, I would advance her diet to a clear liquid diet and then advance as tolerated beyond that. 7. If the patient does not respond to more conservative management, I would then recommend upper endoscopy at that time. We will continue to follow. Please call with any questions. Job ID: [id number]
--- NOTE | 2019-08-27 14:56 | PDOC.HOSPP ---
- Subjective Encounter Date: 08/27/19 Encounter Time: 11:00 Subjective: Patient seen and examined for N/V/weight loss. Nausea improving. No new episode of vomiting. No other complaints. No overnight events - Objective Vital Signs & Weight: Vital Signs (12 hours) Temp Pulse Resp BP BP Pulse Ox 08/27/19 07:20 98.1 F 87 16 168/90 H 97 08/27/19 03:47 97.5 F L 60 18 149/71 H 97 Weight Weight 116 lb 13.52 oz I&O: 08/26/19 08/27/19 08/28/19 06:59 06:59 06:59 Intake Total 1200 1002.25 Balance 1200 1002.25 Result Diagrams: 08/26/19 05:19 08/26/19 05:19 Radiology Reviewed by me: Jazzy garcia) Hospitalist ROS - Review of Systems Respiratory: denies: cough, dry, shortness of breath, hemoptysis, SOB with excertion, pleuritic pain, sputum, wheezing, other Cardiovascular: denies: chest pain, palpitations, orthopnea, paroxysmal noc. dyspnea, edema, light headedness, other Gastrointestinal: denies: nausea, vomiting, abdominal pain, diarrhea, constipation, melena, hematochezia, other - Medication Medications: Active Medications Generic Name Dose Route Start Last Admin Trade Name Freq PRN Reason Stop Dose Admin Amlodipine Besylate 5 mg 08/25/19 21:00 08/26/19 20:34 Norvasc PO 5 mg HS YOGESH Administration Losartan Potassium 25 mg 08/25/19 21:00 08/26/19 20:34 Cozaar PO 25 mg HS YOGESH Administration Metoprolol Succinate 50 mg 08/25/19 21:00 08/27/19 08:52 Toprol Xl PO 50 mg BID YOGESH Administration Ondansetron HCl 4 mg 08/25/19 20:57 08/25/19 21:44 Zofran IVP 4 mg Q6H PRN Administration Nausea/Vomiting Pantoprazole Sodium 40 mg 08/26/19 21:00 08/27/19 08:52 Protonix IVP 40 mg Q12HR YOGESH Administration Zolpidem Tartrate 10 mg 08/25/19 21:00 08/26/19 20:34 Ambien PO 10 mg HS YOGESH Administration - Exam General Appearance: NAD Heart: RRR, no gallops Respiratory: no wheezes, no ronchi Gastrointestinal: non-tender, non-distended, normal bowel sounds Extremities: no cyanosis, no clubbing Hosp A/P - Plan DVT proph w/SCDs 1. Intractable nausea, vomiting with abdominal discomfort of unclear etiology. 2. 12 pounds weight loss with inability to maintain oral intake. 3. Dehydration with hyponatremia and hypokalemia. Her sodium on admission was 126. 4. Chronic low back pain. 5. Degenerative joint disease. 6. Hypertension. 7. Anxiety. PLAN: Cont IV PPI HIDA negative Cont NPO Consult GI AM labs Cont IVF Continue other meds as above I d/w gen surg
[2019-08-27] MEDS ORDERED: Losartan 25 MG TAB PO SCH (15:00)
[2019-08-27] MEDS ORDERED: Labetalol HCl 100 MG/20 ML VIAL SLOW IVP PRN (15:02)
[2019-08-27] MEDS: Acetaminophen 325 MG TAB PO PRN (19:07)
[2019-08-27] MEDS: Zolpidem Tartrate 5 MG TAB PO SCH (21:06)
[2019-08-27] MEDS: Amlodipine 5 MG TAB PO SCH (21:07)
[2019-08-27] MEDS: Losartan 25 MG TAB PO SCH (21:07)
[2019-08-28 05:43] LABS: #Lymphocytes 1.2 thou/uL (1.20-3.40); #Monocytes 0.4 thou/uL (0.11-0.59); #Neutrophils 1.3 thou/uL (1.40-6.50); %Basophils 1.4 % (0.0-1.0); %Eosinophils 1.2 % (0.0-10.0); %Lymphocytes 40.2 % (21.0-51.0); %Monocytes 14.4 % (0.0-10.0); %Neutrophils 42.7 % (42.0-75.0); Hemoglobin 11.9 g/dL (12.0-16.0); Mean Corpuscular HGB CONC 33.5 g/dL (32.0-36.0); Mean Corpuscular Hemoglobin 28.4 pg (27.0-31.0); Mean Corpuscular Volume 84.7 fL (78.0-98.0); Mean Platelet Volume 7.8 fL (7.4-10.4); Platelet Count 188 thou/uL (130-400); RBC Distribution Width 12.7 % (11.5-14.5); Red Blood Cell (RBC) Count 4.21 mill/uL (4.20-5.40)
[2019-08-28 06:01] LABS: Anion Gap 12 mmol/L (10-20); BUN (Urea Nitrogen) 7 mg/dL (9.8-20.1); Calc. Creatinine Clearance 54 mL/min (70-130); Calcium 8.6 mg/dL (7.8-10.44); Carbon Dioxide 23 mmol/L (23-31); Chloride 96 mmol/L (98-107); Estimated GFR-MDRD 78; Glucose 113 mg/dL (83-110); Magnesium 1.6 mg/dL (1.6-2.6); Potassium 3.1 mmol/L (3.5-5.1); Sodium 128 mmol/L (136-145)
[2019-08-28] MEDS: Acetaminophen 325 MG TAB PO PRN ×2 (08:55→20:20)
[2019-08-28] MEDS: Pantoprazole 40 MG VIAL IVP SCH ×2 (08:55→20:18)
[2019-08-28] MEDS ORDERED: NS 0.9% w/ 40 MEQ KCL 1,000 ML IV SCH (10:15)
[2019-08-28] MEDS ORDERED: Magnesium Sulfate 4 GM in Sodium Chloride 0.9% 250 ML 250 ML IVPB SCH (10:15)
[2019-08-28] MEDS: ALPRAZolam 0.25 MG TAB PO PRN (11:52)
[2019-08-28 14:26] LABS: Anion Gap 14 mmol/L (10-20); BUN (Urea Nitrogen) 8 mg/dL (9.8-20.1); Calc. Creatinine Clearance 50 mL/min (70-130); Carbon Dioxide 24 mmol/L (23-31); Chloride 92 mmol/L (98-107); Estimated GFR-MDRD 71; Glucose 133 mg/dL (83-110); Potassium 3.6 mmol/L (3.5-5.1); Sodium 126 mmol/L (136-145)
[2019-08-28] MEDS: Magnesium Chloride 64 MG TAB PO SCH ×2 (14:29→20:20)
[2019-08-28] MEDS ORDERED: hydrALAZINE 20 MG/ML VIAL SLOW IVP PRN (19:44)
--- NOTE | 2019-08-28 19:45 | PDOC.HOSPP ---
- Subjective Encounter Date: 08/28/19 Encounter Time: 11:30 Subjective: Patient seen and examined for N/V/Hyponatremia. Nausea improving. No vomiting. Feels gen weak and anxious. No new complaints. No overnight events - Objective Vital Signs & Weight: Vital Signs (12 hours) Temp Pulse Resp BP BP Pulse Ox 08/28/19 16:00 97.9 F 72 18 181/91 H 97 08/28/19 11:55 97.9 F 68 18 175/85 H 98 08/28/19 08:00 98.0 F 74 18 148/83 H 100 Weight Admit Weight 116 lb Weight 116 lb 13.52 oz I&O: 08/27/19 08/28/19 08/29/19 06:59 06:59 06:59 Intake Total 1002.25 Balance 1002.25 Result Diagrams: 08/28/19 05:16 08/28/19 13:52 Radiology Reviewed by me: Yes (HIDA - negative) Hospitalist ROS - Review of Systems Respiratory: denies: cough, dry, shortness of breath, hemoptysis, SOB with excertion, pleuritic pain, sputum, wheezing, other Cardiovascular: denies: chest pain, palpitations, orthopnea, paroxysmal noc. dyspnea, edema, light headedness, other - Medication Medications: Active Medications Generic Name Dose Route Start Last Admin Trade Name Freq PRN Reason Stop Dose Admin Acetaminophen 650 mg 08/25/19 18:47 08/28/19 08:55 Tylenol PO 650 mg Q4H PRN Administration Headache/Fever/Mild Pain (1-3) Alprazolam 0.25 mg 08/28/19 10:05 08/28/19 11:52 Xanax PO 0.25 mg BIDPRN PRN Administration Anxiety Amlodipine Besylate 5 mg 08/25/19 21:00 08/27/19 21:07 Norvasc PO 5 mg HS YOGESH Administration Losartan Potassium 25 mg 08/25/19 21:00 08/27/19 21:07 Cozaar PO 25 mg HS YOGESH Administration Magnesium Chloride 64 mg 08/28/19 15:00 08/28/19 14:29 Slow-Mag PO 64 mg TID YOGESH Administration Metoprolol Succinate 50 mg 08/25/19 21:00 08/28/19 08:55 Toprol Xl PO 50 mg BID YOGESH Administration Ondansetron HCl 4 mg 08/25/19 20:57 08/25/19 21:44 Zofran IVP 4 mg Q6H PRN Administration Nausea/Vomiting Pantoprazole Sodium 40 mg 08/26/19 21:00 08/28/19 08:55 Protonix IVP 40 mg Q12HR YOGESH Administration Potassium Chloride 20 meq 08/28/19 12:00 08/28/19 19:36 Klor-Con PO Not Given TID-WM YOGESH Sertraline HCl 25 mg 08/28/19 09:00 08/28/19 08:55 Zoloft PO 25 mg DAILY YOGESH Administration Zolpidem Tartrate 10 mg 08/25/19 21:00 08/27/19 21:06 Ambien PO 10 mg HS YOGESH Administration - Exam General Appearance: NAD Heart: RRR, no gallops Respiratory: no wheezes, no ronchi Gastrointestinal: non-tender, non-distended, normal bowel sounds Extremities: no cyanosis, no clubbing Neurological: no new deficit Hosp A/P - Plan DVT proph w/SCDs 1. Intractable nausea, vomiting with abdominal discomfort of unclear etiology. improving 2. 12 pounds weight loss with inability to maintain oral intake. 3. Dehydration with hyponatremia and hypokalemia. 4. Chronic low back pain. 5. Degenerative joint disease. 6. Hypertension. 7. Anxiety. PLAN: Advance diet as tolerated Recheck sodium later today Replace Potassium Refusing IVF GI input appreciated Continue other meds as above Consult Nephrology due to persistent hyponatremia AM labs
[2019-08-28] MEDS: Amlodipine 5 MG TAB PO SCH (20:19)
[2019-08-28] MEDS: Losartan 25 MG TAB PO SCH (20:20)
[2019-08-28] MEDS: Zolpidem Tartrate 5 MG TAB PO SCH (20:21)
--- NOTE | 2019-08-28 21:05 | PRG ---
DATE OF SERVICE: 08/28/2019 SUBJECTIVE: Ms. Dimas states that she ate all of the solid food on her plate today and tolerated it very well, and her nausea is completely resolved. No vomiting for the last couple of days now. OBJECTIVE: ABDOMEN: Soft, nontender, and nondistended. Bowel sounds are present. VITAL SIGNS: She is afebrile. IMPRESSION: 1. Intractable nausea and vomiting are currently resolved. 2. Hyponatremia per the primary service. 3. She should avoid NSAIDs and she will continue proton pump inhibitor. 4. GI will sign off. Please call if we can be of assistance. Job ID: [id number]
--- NOTE | 2019-08-28 23:09 | CON ---
DATE OF CONSULTATION: REASON FOR CONSULTATION: Hyponatremia. HISTORY OF PRESENT ILLNESS: A very pleasant 78-year-old female presented to the hospital on August 24 with intractable nausea, vomiting, and weakness. The patient had a sodium of 130 on admission with decreased to 126. I was consulted later in the afternoon. The patient denies nausea, vomiting, or chest pain at this time. PAST MEDICAL HISTORY: Significant for hypertension, depression, hiatal hernia, ORIF in March 2019, back surgery, appendectomy, hysterectomy. SOCIOECONOMIC HISTORY: No alcohol or drug use. FAMILY HISTORY: Negative for ESRD. ALLERGIES: REVIEWED. HOME MEDICATIONS: Home medications list reviewed. Hospital medications list reviewed. REVIEW OF SYSTEMS: Fifteen-point review of system was performed, negative except for positives noted above. HEENT: Eyes intact, no diplopia. Ears: No hearing loss or earache. NOSE: No discharge or bleeding. CHEST: No cough or phlegm. ABDOMEN: No nausea or vomiting. GENITOURINARY: No hematuria. No Bowman catheter. MUSCULOSKELETAL: No low back pain. No joint swelling or pain. NEUROLOGICAL: No syncope. No seizures. SKIN: No complaints of rash or itching. PSYCHIATRIC: No depression. CONSTITUTIONAL: No weight loss or loss of appetite. PHYSICAL EXAMINATION: GENERAL: The patient is awake and alert. VITAL SIGNS: Afebrile, pulse 75, breathing at 16, blood pressure 148/83. HEENT: Head normocephalic and atraumatic. Eyes intact, no ulcers. Nose intact, no ulcers. Ears intact, no ulcers. NECK: Supple. No JVD. CHEST: Symmetrical and clear. CARDIOVASCULAR: Shows S1 and S2, no rub, no murmur. GASTROINTESTINAL: Abdomen is soft, bowel sounds positive. EXTREMITIES: Show no edema or ulcers. SKIN: Shows no rash or petechiae. MUSCULOSKELETAL: Shows no joint swelling or stiffness. GENITOURINARY: Shows no Bowman or CVA tenderness. NEUROLOGIC: Motor intact. Cranial nerves intact. LABORATORY DATA: Sodium 127. TSH was 2.4. Urine osmolality was 531, serum osmolality was 267. ASSESSMENT/RECOMMENDATIONS: 1. 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 I would recommend 800 mL fluid restriction and rechecking labs later in the morning. 2. Hypertension. Titrate home medication. Chronic pain. Medication based on GFR appropriate except please change the metoprolol succinate to once a day. Job ID: [id number]
[2019-08-29 06:54] LABS: Anion Gap 11 mmol/L (10-20); BUN (Urea Nitrogen) 8 mg/dL (9.8-20.1); Calc. Creatinine Clearance 53 mL/min (70-130); Calcium 8.6 mg/dL (7.8-10.44); Carbon Dioxide 25 mmol/L (23-31); Chloride 94 mmol/L (98-107); Estimated GFR-MDRD 77; Glucose 97 mg/dL (83-110); Potassium 3.5 mmol/L (3.5-5.1); Sodium 126 mmol/L (136-145)
[2019-08-29 08:02] LABS: Mean Corpuscular Hemoglobin 29.2 pg (27.0-31.0); Mean Corpuscular Volume 85.8 fL (78.0-98.0); Mean Platelet Volume 7.3 fL (7.4-10.4); Platelet Count 177 thou/uL (130-400); RBC Distribution Width 12.6 % (11.5-14.5); Red Blood Cell (RBC) Count 4.12 mill/uL (4.20-5.40); White Blood Cell (WBC) Count 3.7 thou/uL (4.8-10.8)
[2019-08-29 08:56] LABS: Band 2 % (5-11); Eosinophils 2 % (0-10); Lymphocytes 44 % (21-51); MDiff Complete? YES; Monocytes 15 % (0-10); Neutrophil 37 % (42-75); Platelet Morphology Comment Appears Adequate; RBC Morphology Normal
[2019-08-29] MEDS: Pantoprazole 40 MG VIAL IVP SCH (09:42)
[2019-08-29] MEDS: Magnesium Chloride 64 MG TAB PO SCH ×3 (09:42→20:13)
[2019-08-29] MEDS: ALPRAZolam 0.25 MG TAB PO PRN (10:54)
[2019-08-29] MEDS ORDERED: Potassium Chloride 20 MEQ TAB PO SCH (12:00)
[2019-08-29 13:50] LABS: Anion Gap 14 mmol/L (10-20); BUN (Urea Nitrogen) 11 mg/dL (9.8-20.1); Calc. Creatinine Clearance 53 mL/min (70-130); Calcium 9.1 mg/dL (7.8-10.44); Carbon Dioxide 23 mmol/L (23-31); Chloride 94 mmol/L (98-107); Estimated GFR-MDRD 77; Glucose 87 mg/dL (83-110); Potassium 4.4 mmol/L (3.5-5.1); Sodium 127 mmol/L (136-145)
[2019-08-29] MEDS: Acetaminophen 325 MG TAB PO PRN ×2 (14:50→20:13)
[2019-08-29 18:30] LABS: Anion Gap 12 mmol/L (10-20); BUN (Urea Nitrogen) 11 mg/dL (9.8-20.1); Calc. Creatinine Clearance 52 mL/min (70-130); Calcium 9.2 mg/dL (7.8-10.44); Carbon Dioxide 25 mmol/L (23-31); Chloride 94 mmol/L (98-107); Estimated GFR-MDRD 76; Glucose 104 mg/dL (83-110); Potassium 3.9 mmol/L (3.5-5.1); Sodium 127 mmol/L (136-145)
--- NOTE | 2019-08-29 18:46 | PRG ---
DATE OF SERVICE: 08/29/2019 SUBJECTIVE: This 78-year-old female being seen for hyponatremia. The patient denies any nausea, vomiting or chest pain. OBJECTIVE: GENERAL: The patient is awake, alert. VITAL SIGNS: Pulse 93, breathing 16, blood pressure 133/74. HEENT: Head normocephalic and atraumatic. Eyes intact, no ulcers. Nose intact, no ulcers. Ears intact, no ulcers. NECK: Supple. No JVD. CHEST: Symmetrical and clear. CARDIOVASCULAR: Shows S1 and S2, no rub, no murmur. GASTROINTESTINAL: Abdomen is soft, bowel sounds positive. EXTREMITIES: Show no edema or ulcers. SKIN: Shows no rash or petechiae. MUSCULOSKELETAL: Shows no joint swelling or stiffness. GENITOURINARY: Shows no Bowman or CVA tenderness. NEUROLOGIC: Motor intact. Cranial nerves intact. LABORATORY DATA: Hemoglobin 12. Sodium 127. ASSESSMENT/RECOMMENDATION: 1. Hyponatremia, improved. 2. Chronic kidney disease stage 2, stable. 3. Hypertension, stable. Medication based on GFR appropriate. Recommend fluid restriction and rechecking sodium in the morning. Job ID: [id number]
[2019-08-29] MEDS: Zolpidem Tartrate 5 MG TAB PO SCH (20:13)
[2019-08-29] MEDS: Amlodipine 5 MG TAB PO SCH (20:14)
[2019-08-29] MEDS: Losartan 25 MG TAB PO SCH (20:14)
--- NOTE | 2019-08-29 23:58 | PDOC.HOSPP ---
- Subjective Encounter Date: 08/29/19 Encounter Time: 13:00 Subjective: Patient seen and examined for N/V/abn labs. Nausea better. Feels gen weak. No new complaints. No overnight events - Objective Vital Signs & Weight: Vital Signs (12 hours) Temp Pulse Resp BP BP Pulse Ox 08/29/19 20:14 71 144/79 H 08/29/19 20:00 98 F 71 18 144/79 H 98 Weight Admit Weight 116 lb Weight 116 lb 13.52 oz I&O: 08/28/19 08/29/19 08/30/19 06:59 06:59 06:59 Intake Total 400 Balance 400 Result Diagrams: 08/29/19 06:25 08/30/19 06:28 Radiology Reviewed by me: Jazzy garcia) Hospitalist ROS - Review of Systems Respiratory: denies: cough, dry, shortness of breath, hemoptysis, SOB with excertion, pleuritic pain, sputum, wheezing, other Cardiovascular: denies: chest pain, palpitations, orthopnea, paroxysmal noc. dyspnea, edema, light headedness, other Gastrointestinal: denies: nausea, vomiting, abdominal pain, diarrhea, constipation, melena, hematochezia, other - Medication Medications: Active Medications Generic Name Dose Route Start Last Admin Trade Name Freq PRN Reason Stop Dose Admin Acetaminophen 650 mg 08/25/19 18:47 08/29/19 20:13 Tylenol PO 650 mg Q4H PRN Administration Headache/Fever/Mild Pain (1-3) Alprazolam 0.25 mg 08/28/19 10:05 08/29/19 10:54 Xanax PO 0.25 mg BIDPRN PRN Administration Anxiety Amlodipine Besylate 5 mg 08/25/19 21:00 08/29/19 20:14 Norvasc PO 5 mg HS YOGESH Administration Losartan Potassium 25 mg 08/25/19 21:00 08/29/19 20:14 Cozaar PO 25 mg HS YOGESH Administration Magnesium Chloride 64 mg 08/28/19 15:00 08/29/19 20:13 Slow-Mag PO 64 mg TID YOGESH Administration Metoprolol Succinate 50 mg 08/25/19 21:00 08/29/19 20:14 Toprol Xl PO 50 mg BID YOGESH Administration Ondansetron HCl 4 mg 08/25/19 20:57 08/25/19 21:44 Zofran IVP 4 mg Q6H PRN Administration Nausea/Vomiting Sertraline HCl 25 mg 08/28/19 09:00 08/29/19 09:42 Zoloft PO 25 mg DAILY YOGESH Administration Sodium Chloride 10 ml 08/25/19 18:47 08/29/19 09:42 Flush - Normal Saline IVF 10 ml PRN PRN Administration Saline Flush Zolpidem Tartrate 10 mg 08/25/19 21:00 08/29/19 20:13 Ambien PO 10 mg HS YOGESH Administration - Exam General Appearance: NAD Neck: supple, no JVD Heart: no gallops, no rubs Respiratory: no wheezes, no rales Gastrointestinal: non-tender, non-distended, normal bowel sounds Extremities: no clubbing Hosp A/P - Plan DVT proph w/SCDs 1. Intractable nausea, vomiting with abdominal discomfort of unclear etiology. improving 2. 12 pounds weight loss with inability to maintain oral intake. 3. Dehydration with hyponatremia and hypokalemia. 4. Chronic low back pain. 5. Degenerative joint disease. 6. Hypertension. 7. Anxiety. PLAN: Cont to advance diet as tolerated sodium 126 today - Will repeat today Case d/w Nephrology Continue other meds as above Will monitor sodium closely AM labs DC once sodium improves
[2019-08-30 07:16] LABS: Anion Gap 11 mmol/L (10-20); BUN (Urea Nitrogen) 9 mg/dL (9.8-20.1); Calc. Creatinine Clearance 53 mL/min (70-130); Calcium 8.5 mg/dL (7.8-10.44); Carbon Dioxide 24 mmol/L (23-31); Chloride 98 mmol/L (98-107); Estimated GFR-MDRD 77; Glucose 95 mg/dL (83-110); Potassium 3.6 mmol/L (3.5-5.1); Sodium 129 mmol/L (136-145)
[2019-08-30] MEDS: Acetaminophen 325 MG TAB PO PRN (09:11)
[2019-08-30] MEDS: ALPRAZolam 0.25 MG TAB PO PRN (09:11)
[2019-08-30] MEDS: Magnesium Chloride 64 MG TAB PO SCH ×2 (09:12→17:26)
--- NOTE | 2019-08-30 13:22 | PRG ---
DATE OF SERVICE: 08/30/2019 SUBJECT: A 78-year-old female being seen for hyponatremia. The patient denied nausea, vomiting or chest pain. OBJECTIVE: GENERAL: The patient is awake, alert. VITAL SIGNS: Afebrile. Pulse 70, breathing 16, blood pressure 137/74. HEENT: Head normocephalic and atraumatic. Eyes intact, no ulcers. Nose intact, no ulcers. Ears intact, no ulcers. NECK: Supple. No JVD. CHEST: Symmetrical and clear. CARDIOVASCULAR: Shows S1 and S2, no rub, no murmur. GASTROINTESTINAL: Abdomen is soft, bowel sounds positive. EXTREMITIES: Show no edema or ulcers. SKIN: Shows no rash or petechiae. MUSCULOSKELETAL: Shows no joint swelling or stiffness. GENITOURINARY: Shows no Bowman or CVA tenderness. NEUROLOGIC: Motor intact. Cranial nerves intact. LABORATORY DATA: Hemoglobin 12, creatinine 0.73. ASSESSMENT/RECOMMENDATION: 1. Chronic kidney disease, stage 2, stable. 2. Hypertension, stable. 3. Anemia, stable. 4. Hyponatremia, improved. 5. Recommend fluid restriction. The patient will follow up in 1 week. Job ID: [id number]
[2019-08-30 17:24] VITALS: BP 140/85; TEMP 97.8
--- NOTE | 2019-08-30 20:16 | DIS ---
DATE OF ADMISSION: 08/27/2019 DATE OF DISCHARGE: 08/30/2019 DISCHARGE DISPOSITION: Home. FOLLOWUP: 1. Follow up with primary care physician, Dr. Pina in 1 week. 2. Follow up with Gastroenterology Clinic in 1 to 2 weeks. 3. Follow up with Nephrology next week. 4. Basic metabolic profile after 1 week was recommended. Primary care physician advised to follow. DISCHARGE MEDICATIONS: 1. Protonix 40 mg daily. 2. Slow magnesium 64 mg b.i.d. 3. Effexor was discontinued. 4. All other home medications were left unchanged. The patient was seen and examined on the day of discharge. Denies any new complaints. No chest pain, shortness of breath, or palpitations reported. BRIEF HOSPITAL COURSE: The patient is a 78-year-old female with recent back surgery, presented to the hospital with intractable nausea and vomiting along with epigastric discomfort. She was monitored on the medical floor. Due to persistent nausea and vomiting, she was evaluated by Gastroenterology. Her symptoms gradually improved with conservative measures. She was advised to avoid NSAIDs. She was started on PPI. The patient was also found to have hyponatremia with sodium of 126 that improved to 130 after IV hydration. However, it started to drop again to 126. For this reason, she was evaluated by Nephrology, Dr. Greco. Sodium improved with volume restriction. Sodium today is 129. Dr. Greco will follow up the patient as an outpatient. FINAL DIAGNOSES: 1. Intractable nausea and vomiting with abdominal discomfort of unclear etiology. 2. 12-pound weight loss with inability to maintain oral intake on admission. 3. Dehydration. 4. Hyponatremia, improving. 5. Hypokalemia. 6. Chronic low back pain. 7. Degenerative joint disease. 8. Hypertension. 9. Anxiety. 10. Chronic kidney disease, stage 2. 11. Hiatal hernia. The patient understands the above plan of care. Job ID: [id number]
--- NOTE | 2019-09-02 08:17 | PQF ---
CARIDAD BAIG MALIK MD [id number] CLINICAL DOCUMENTATION CLARIFICATION FORM: POST DISCHARGE Addendum to original discharge summary date: ____ Late entry note date: __ DATE: 09/02/2019 ATTN: León An Please exercise your independent, professional judgment in responding to the clarification form. 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 I would recommend 800 mL fluid restriction and rechecking labs later in the morning - Consult 08/27 by Chema Greco MD Consult nephrology due to persistent hyponatremia - PN 08/27 by León Raygoza MD RISK FACTORS Nausea and vomiting, dehydration - PN 08/28 by León Raygoza MD TREATMENTS: IV fluids 08/25 and 08/27 - Medications (This form is maintained as a part of the permanent medical record) 2014 [employer] All Rights Reserved Mustapha [email or web address]
--- NOTE | 2019-09-02 08:33 | PQF ---
[employer] Crystal Reports [employer] [facility] CityCARIDAD GUDELIA RAYGOZA MD [id number] [facility] [id number] CLINICAL DOCUMENTATION CLARIFICATION FORM: POST DISCHARGE Addendum to original discharge summary date: ____ Late entry note date: __ Date: 09/02/2019 ATTN: Gudelia An Please exercise your independent, professional judgment in responding to the clarification form. Clinical indicators are provided on the bottom of this form for your review Please check appropriate box(s): [ x ] Protein Calorie Malnutrition: [ ] Mild [ x ] Moderate [ ] Severe [ ] Other Malnutrition (please specify) __ [ ] Underweight without malnutrition [ ] Cachexia [ ] Other diagnosis [ ] Unable to determine In addition, please specify: Present on Admission (POA): [ x ] Yes [ ] No [ ] Unable to determine CLINICAL INDICATORS - SIGNS / SYMPTOMS / LABS 12 pounds weight loss with inability to maintain oral take on admission - Discharge summary BMI of 21.4 Dehydration with hyponatremia and hypokalemia - PN 08/28 by Gudelia Raygoza MD Intractable nausea and vomiting - Discharge summary RISK FACTORS Intractable nausea and vomiting - Discharge summary Inability to maintain oral intake - Discharge summary TREATMENT: Continue to advance diet as tolerated - PN 08/28 by Gudelia Raygoza MD Moderate Malnutrition (in acute illness) Energy Intake: <75% of estimated energy requirement for > 7 days Weight Loss: 1-2%/1 week; 5%/ 1 month; 7.5%/3 months Other: mild body fat loss; mild muscle mass loss; mild fluid accumulation; Severe Malnutrition (in acute illness) Energy Intake: < 50% of estimated energy requirement for > 5 days Weight Loss: >1-2%/1 week; >5%/1 month; >7.5%/3 months Other: moderate body fat loss; moderate muscle mass loss; moderate- severe fluid accumulation; measurably reduced photo finish photographer strength [employer] Crystal Reports [employer] ViewerModerate Malnutrition (in chronic illness) Energy Intake: <75% of estimated energy requirement for >1 month Weight Loss: 5%/1 month; 7.5%/3 months; 10%/6 months; 20%/1 year Other: mild body fat loss; mild muscle mass loss; mild fluid accumulation Severe Malnutrition (in chronic illness) Energy Intake: <75% of estimated energy requirement for >1 month Weight Loss: >5%/1 month; >7.5%/3 months; >10%/6 months; >20%/1 year Other: severe body fat loss; severe muscle mass loss; severe fluid accumulation ; measurably reduced photo finish photographer strength (This form is maintained as a part of the permanent medical record) 2014 [employer]. All Rights Reserved Mustapha [email or web address]
== END 2019-08-30 15:59 | disposition home or self-care (01) | DRG 644 ==
LOC: ERS 17:08 → T4-B 18:15 → OBSVTOIN 08-27 14:12
PROVIDERS: ADMIT Internal Medicine; ATTEND Internal Medicine
DX: E22.2 Syndrome of inappropriate secretion of antidiuretic hormone (principal); E44.0 Moderate protein-calorie malnutrition; R11.2 Nausea with vomiting, unspecified; E86.0 Dehydration; F32.9 Major depressive disorder, single episode, unspecified; E87.6 Hypokalemia; F41.9 Anxiety disorder, unspecified; G89.29 Other chronic pain; M54.5 Low back pain; M19.90 Unspecified osteoarthritis, unspecified site; K44.9 Diaphragmatic hernia without obstruction or gangrene; N18.2 Chronic kidney disease, stage 2 (mild); I12.9 Hypertensive chronic kidney disease with stage 1 through stage 4 chronic kidney disease, or unspecified chronic kidney disease; R10.13 Epigastric pain; R63.4 Abnormal weight loss; Z90.710 Acquired absence of both cervix and uterus; Z90.49 Acquired absence of other specified parts of digestive tract; Z88.0 Allergy status to penicillin; Z68.21 Body mass index [BMI] 21.0-21.9, adult
CPT/HCPCS: 36415; 78227; 80048; 80053; 80306; 83735; 83930; 83935; 84300; 84443; 85025; 87086; 96374; 96375; 96376; 99285; A9537; C9113; G0378; J1885; J2060; J2405; J2550; J3480; J7050; S0028

== ENCOUNTER 2019-09-27 15:41 | Observation (INO) | payer BC, MEDICARE, OTHER ==
[2019-09-27 16:12] LABS: #Lymphocytes 0.9 thou/uL (1.20-3.40); #Monocytes 0.4 thou/uL (0.11-0.59); #Neutrophils 4.1 thou/uL (1.40-6.50); %Basophils 0.8 % (0.0-1.0); %Eosinophils 0.5 % (0.0-10.0); %Lymphocytes 16.7 % (21.0-51.0); %Monocytes 7.3 % (0.0-10.0); %Neutrophils 74.8 % (42.0-75.0); Hemoglobin 13.2 g/dL (12.0-16.0); Mean Corpuscular HGB CONC 33.3 g/dL (32.0-36.0); Mean Corpuscular Hemoglobin 28.7 pg (27.0-31.0); Mean Corpuscular Volume 86.2 fL (78.0-98.0); Mean Platelet Volume 7.7 fL (7.4-10.4); Platelet Count 295 thou/uL (130-400); RBC Distribution Width 13.7 % (11.5-14.5); Red Blood Cell (RBC) Count 4.61 mill/uL (4.20-5.40); White Blood Cell (WBC) Count 5.5 thou/uL (4.8-10.8)
[2019-09-27 16:22] LABS: Bacteria/HPF None Seen HPF (None Seen); Bilirubin Negative (Negative); Blood, Urine Negative (Negative); Calcium Oxalate Crystals 4+ HPF (None Seen); Clarity Turbid (Clear); Glucose, Urine (Dipstick) Normal (Negative); Ketone, Urine Trace mg/dL (Negative); Leukocyte Negative Leu/uL (Negative); Nitrite Negative (Negative); Protein, Urine (Dipstick) 50 mg/dL (Neg-Trace); RBC/HPF 0-3 HPF (0-3); Squamous Epithelial 0-3 HPF (0-3); Urobilinogen Normal mg/dL (Less than 2); pH, Urine 6.5 (5.0-9.0)
[2019-09-27 16:32] LABS: ALT (SGPT) 21 U/L (8-55); AST (SGOT) 25 U/L (5-34); Albumin 4.4 g/dL (3.4-4.8); Alkaline Phosphatase 127 U/L (40-110); Anion Gap 14 mmol/L (10-20); BUN (Urea Nitrogen) 9 mg/dL (9.8-20.1); Bilirubin, Total 0.8 mg/dL (0.2-1.2); Calc. Creatinine Clearance 0 mL/min (70-130); Calcium 9.7 mg/dL (7.8-10.44); Carbon Dioxide 26 mmol/L (23-31); Chloride 99 mmol/L (98-107); Estimated GFR-MDRD 68; Globulin 2.8 g/dL (2.4-3.5); Glucose 104 mg/dL (83-110); Potassium 3.2 mmol/L (3.5-5.1); Protein, Total 7.2 g/dL (6.0-8.3); Sodium 136 mmol/L (136-145)
--- NOTE | 2019-09-27 17:00 | RAD ---
XR Chest 1 View Portable History: Chest pain Comparison: Radiograph August 2019 Findings: Transverse aorta continues to be enlarged. Scattered scarring throughout the lungs which ap pear to be hyperinflated. Lower thoracic spine cemented. No confluent airspace consolidation, pneumothorax or effusion. Impression: 1. No acute intrathoracic abnormality. 2. Likely a scar versus small granuloma right peripheral midlung measuring 4 mm. Follow-up for radiog raphs in 6 months recommended.
[2019-09-27 22:32] VITALS: BMI 21.5
[2019-09-27] MEDS ORDERED: Acetaminophen 325 MG TAB PO PRN (22:45)
[2019-09-27] MEDS ORDERED: Acetaminophen 650 MG Suppository PR PRN (22:45)
[2019-09-27] MEDS ORDERED: Melatonin 3 MG TAB PO PRN (22:57)
[2019-09-27] MEDS ORDERED: ALPRAZolam 0.25 MG TAB PO SCH (23:00)
[2019-09-27] MEDS ORDERED: Potassium Chloride 20 MEQ TAB PO SCH (23:00)
[2019-09-27] MEDS ORDERED: Ondansetron PF 4 MG/2 ML Vial IVP PRN (23:22)
[2019-09-27] MEDS ORDERED: Ondansetron ODT 4 MG TAB SL PRN (23:22)
[2019-09-27] MEDS ORDERED: Dextrose 5 %-0.45 % NaCl 1,000 ML IV SCH (23:30)
[2019-09-27] MEDS ORDERED: Zolpidem Tartrate 5 MG TAB PO SCH (23:45)
--- NOTE | 2019-09-27 23:52 | HP ---
TIME OF ASSESSMENT: 2199 PRIMARY CARE PHYSICIAN: Dr. Jonathan Brown. CHIEF COMPLAINT: Decreased appetite with no food intake for four days. HISTORY OF PRESENT ILLNESS: Ms. Dimas is a 79-year-old woman, who was advised to come to the emergency department after following up with Dr. Earl in the GI clinic today. The patient had recently been discharged on August 27, 2019, after presenting with intractable nausea, vomiting, and epigastric discomfort. She was seen by GI during her admission and it was felt that her discomfort was due to unclear etiology. She was started on a PPI. When seen by Dr. Earl today, patient continued with vomiting and states she last vomited on Tuesday. The last time she attempted to eat anything was this past Tuesday. Given the fact that her symptoms have persisted, Dr. Earl felt she needed an upper endoscopy and therefore referred her to the emergency department to be admitted with plans to undergo endoscopic procedure tomorrow. While in the emergency department, the patient has not had any vomiting. She denies experiencing any abdominal pain at present. States she feels generally unwell, but is otherwise without any complaints. She was somewhat frustrated with the fact that there was difficulty obtaining IV access and her line infiltrated several times. However, she understands this is due to her being dehydrated given minimal fluid intake in recent days. In the emergency department, she underwent COVID testing in preparation for the procedure tomorrow. Of note, during her last admission, the patient underwent several investigations, including a HIDA scan, which was unremarkable. She had a CT of the abdomen and pelvis at that time as well showing no acute abnormalities in the abdomen or pelvis. Today, she underwent a chest x-ray showing a scar versus granuloma of the right perihilar mid lung measuring 4 mm with recommendations to undergo followup imaging in six months. Otherwise, no acute intrathoracic abnormality. She had laboratory studies done showing a normal full blood count. BMP was notable for a low potassium of 3.2. Her renal function was slightly reduced from baseline with BUN of 9, creatinine of 0.81, and GFR of 68. Glucose was 104. LFTs unremarkable, except alk phos, which was 127. She had a urinalysis done which showed turbid appearing urine with 50 of protein, trace ketones, 46 white blood cells, 4+ calcium oxalate crystal, negative for bacteria, negative for nitrites, negative for leukocyte esterase. She was given 1 L of normal saline while in the ED. PAST MEDICAL HISTORY: 1. Hypertension. 2. Anxiety. 3. Insomnia. 4. GERD. 5. Chronic low back pain. 6. Degenerative joint disease. 7. CKD. 8. Hiatal hernia. PAST SURGICAL HISTORY: 1. Cataract surgery. 2. Hysterectomy. 3. Appendectomy. 4. Right hip ORIF. 5. Back surgery x3. SOCIAL HISTORY: Patient denies any tobacco use, alcohol consumption, or illicit drug use. FAMILY HISTORY: Noncontributory. ALLERGIES: 1. PENICILLIN. 2. PROMETHAZINE. CURRENT MEDICATIONS: 1. Metoprolol. 2. Telmisartan. 3. Amlodipine. 4. Ambien. 5. Zoloft. PHYSICAL EXAMINATION: GENERAL: Patient appears well developed and in no acute distress. She is resting comfortably on the stretcher in the ER. VITAL SIGNS: Temperature 98, pulse 64, blood pressure 184/108, respirations 24, and O2 saturation 94% on room air. HEENT: Normocephalic and atraumatic. Pupils are equal, round, and reactive to light. Sclerae without icterus. Oropharynx is clear. NECK: Supple. LUNGS: Clear to auscultation bilaterally, without wheezes, rales, or rhonchi. CARDIAC: Regular rate and rhythm. ABDOMEN: Soft, nontender, and nondistended. Normoactive bowel sounds present. No guarding or rigidity. Mild diffuse discomfort to palpation, but it is minimal. NEUROLOGIC: Alert and oriented x3. SKIN: Warm and dry. EXTREMITIES: She does have obvious localized edema to the left upper extremity just below the antecubital region due to infiltrated IV line. Minimal discomfort. INVESTIGATIONS: As mentioned above in HPI. IMPRESSION AND PLAN: Ms. Dimas is a very pleasant 79-year-old woman, with a longstanding history of intractable nausea and vomiting with inability to tolerate oral intake and significant weight loss. She was recently admitted for this in August and seen by GI with imaging studies showing no clear explanation for her symptoms. She was advised to follow up in the outpatient GI clinic and had an appointment today with Dr. Earl. Due to persisting symptoms and inability to eat since Tuesday, Dr. Earl advised she come to the emergency department with plans to admit her and have her undergo an upper endoscopy tomorrow. Preprocedure COVID testing has been done in the emergency department. She has received hydration with 1 L of normal saline. Laboratory studies notable for a low potassium. We will replace potassium and continue to monitor electrolytes. We will add a magnesium. Patient with a known history of hypertension and we will reconcile her home medications. Continue to monitor her blood pressure. With regard to her GI symptoms, she is asymptomatic at present and will remain n.p.o. with plans to undergo endoscopic procedure in the morning. Gastrointestinal prophylaxis with Pepcid 20 mg b.i.d. DVT prophylaxis with mechanical SCDs. Code status is full. Surrogate decision maker is Jose Dimas. Case was discussed with attending, who agrees upon care as described above. Job ID: [id number]
[2019-09-28 06:43] LABS: #Eosinphils 0.1 thou/uL (0.0-0.7); #Lymphocytes 0.9 thou/uL (1.20-3.40); #Monocytes 0.6 thou/uL (0.11-0.59); #Neutrophils 2.7 thou/uL (1.40-6.50); %Basophils 0.1 % (0.0-1.0); %Eosinophils 1.5 % (0.0-10.0); %Lymphocytes 21.2 % (21.0-51.0); %Neutrophils 63.2 % (42.0-75.0); Hemoglobin 11.7 g/dL (12.0-16.0); Mean Corpuscular HGB CONC 33.7 g/dL (32.0-36.0); Mean Corpuscular Hemoglobin 29.5 pg (27.0-31.0); Mean Corpuscular Volume 87.6 fL (78.0-98.0); Mean Platelet Volume 7.7 fL (7.4-10.4); Platelet Count 240 thou/uL (130-400); RBC Distribution Width 13.6 % (11.5-14.5); Red Blood Cell (RBC) Count 3.95 mill/uL (4.20-5.40); White Blood Cell (WBC) Count 4.3 thou/uL (4.8-10.8)
[2019-09-28 07:01] LABS: ALT (SGPT) 16 U/L (8-55); AST (SGOT) 18 U/L (5-34); Albumin 3.6 g/dL (3.4-4.8); Alkaline Phosphatase 104 U/L (40-110); Anion Gap 13 mmol/L (10-20); BUN (Urea Nitrogen) 9 mg/dL (9.8-20.1); Bilirubin, Total 0.7 mg/dL (0.2-1.2); Calc. Creatinine Clearance 48 mL/min (70-130); Carbon Dioxide 26 mmol/L (23-31); Chloride 104 mmol/L (98-107); Estimated GFR-MDRD 69; Globulin 2.3 g/dL (2.4-3.5); Glucose 98 mg/dL (83-110); Potassium 3.6 mmol/L (3.5-5.1); Protein, Total 5.9 g/dL (6.0-8.3); Sodium 139 mmol/L (136-145)
[2019-09-28 07:19] LABS: Free T4 (Free Thyroxine) 1.16 ng/dL (0.70-1.48); Thyroid Stimulating Hormone 0.8721 uIU/mL (0.35-4.94)
[2019-09-28] MEDS: Famotidine/PF 20 mg/2ml Vial SLOW IVP SCH (08:57)
[2019-09-28] MEDS ORDERED: PROPOFOL 200 MG/20 ML VIAL ONE (11:33)
[2019-09-28] MEDS ORDERED: Iopamidol-370 76% 500 ML 1 ML ONE (12:35)
--- NOTE | 2019-09-28 12:58 | CON ---
DATE OF CONSULTATION: 09/28/2019 CHIEF COMPLAINT: Vomiting, inability to tolerate oral intake. HISTORY OF PRESENT ILLNESS: Ms. Dimas is a 79-year-old woman, who underwent back surgery several months ago, which has affected her ability to work through the present system. She was hospitalized recently with vomiting with any oral intake. Those symptoms resolved while she was in the hospital. She had a CT scan of the abdomen and pelvis, which was negative. She had a HIDA scan, which was normal. She followed up in the office with Dr. Earl yesterday, but reported over the preceding 4 days, she had been unable to take anything by mouth and anything that she put up to her mouth, she threw up almost before she even swallowed it. Due to the inability to tolerate any oral intake, she was sent to the emergency room and admitted. Plan is to proceed with upper endoscopy today. She acknowledges that anxiety has been a major factor in her symptoms. She is worried about not being able to go to work, but also worried about going back to work due to the presence of COVID-19. She feels like she needs more aggressive treatment for her anxiety. PAST MEDICAL HISTORY: Hypertension, depression, hiatal hernia. PAST SURGICAL HISTORY: Hip surgery, back surgery, appendectomy, hysterectomy. FAMILY HISTORY: Negative for GI malignancy. SOCIAL HISTORY: No alcohol, tobacco, or drugs. ALLERGIES: PENICILLIN. OUTPATIENT MEDICATIONS: Include: 1. Amlodipine. 2. Metoprolol. 3. Telmisartan. 4. Zolpidem. 5. She had been on Zoloft, but feels like this has not been adequate. REVIEW OF SYSTEMS: Negative x10 systems reviewed except as stated in history of present illness. PHYSICAL EXAMINATION: VITAL SIGNS: Temperature 96.2, pulse 78, blood pressure 157/76. GENERAL: She is in no acute distress. Alert and oriented x3. LUNGS: Clear to auscultation bilaterally. HEART: Regular rate and rhythm without murmur. ABDOMEN: Soft, nontender, nondistended. Bowel sounds are present. EXTREMITIES: No lower extremity edema. LABORATORY DATA: White blood cell count 4.3, hemoglobin 11.7, platelets 240. INR 1.0. Creatinine 0.8, bilirubin 0.7, AST 18, ALT 16, alkaline phosphatase 104, albumin 3.6. IMPRESSION: Recurrent nausea and vomiting with any oral intake. CT and HIDA scan have been negative. Upper endoscopy is planned today. It seems that this has been primarily related to her anxiety and work related concerns. If endoscopy is negative, then consideration can be given for a CT of the brain. Otherwise, if that is negative, then no further invasive workup should be done and she will need to follow up with her primary care or Psychiatry for better treatment of her anxiety. I suggested this and she wants her primary care doctor to prescribe medicines for her, but she is reluctant to see Psychiatry. There could be some options for [employer] as an outpatient with Psychiatry as well. Again, she is advised to follow up with her primary care doctor regarding that. RECOMMENDATIONS: EGD today. Job ID: [id number]
[2019-09-28 13:08] LABS: SARS-CoV-2 MS2 Positive; SARS-CoV-2 N Gene Negative; SARS-CoV-2 S Gene Negative; SARS-CoV-2 orf1ab Negative
--- NOTE | 2019-09-28 15:02 | PDOC.HOSPP ---
- Subjective Encounter Date: 09/28/19 Encounter Time: 11:40 Subjective: pt is little anxious, she said she had this done before and no definitive soln .. for her pbm. going for EGD today, no nausa. NPO. - Objective Vital Signs & Weight: Vital Signs (12 hours) Temp Pulse Resp BP BP Pulse Ox 09/28/19 13:41 97.8 F 65 18 175/78 H 97 09/28/19 08:00 96.2 F L 78 18 157/76 H 95 09/28/19 05:05 98 F 74 16 141/77 H 93 L Weight Weight 117 lb 15.157 oz Result Diagrams: 09/28/19 06:11 09/28/19 06:11 Additional Labs: Accuchecks 09/27/19 15:57 POC Glucose 102 Hospitalist ROS - Medication Medications: Active Medications Generic Name Dose Route Start Last Admin Trade Name Freq PRN Reason Stop Dose Admin Famotidine 20 mg 09/28/19 09:00 09/28/19 08:57 Pepcid SLOW IVP 20 mg DAILY YOGESH Administration Metoprolol Succinate 50 mg 09/28/19 09:00 09/28/19 08:57 Toprol Xl PO 50 mg BID YOGESH Administration - Exam General Appearance: NAD, awake alert Eye: PERRL ENT: normocephalic atraumatic Neck: supple Heart: RRR Respiratory: CTAB, normal chest expansion Gastrointestinal: soft, normal bowel sounds Neurological: no focal deficits Hosp A/P - Plan Persistent N/V - CT, HIDA negative -NPO -EGD today -pepcid IV HTN - on BB and norvasc pending EGD report HOme in am, if stable.
[2019-09-28] MEDS ORDERED: Ondansetron HCl/PF 4 MG/2 ML Vial IVP PRN (15:16)
--- NOTE | 2019-09-28 16:07 | CT ---
EXAM: CT brain without and with contrast HISTORY: Severe nausea and vomiting. Evaluate for brain tumor as a cause for the nausea and vomiting. COMPARISON: None TECHNIQUE: Multiple contiguous axial images were obtained and a CT of the brain without and with cont rast. FINDINGS: There are scattered hypodensities in the subcortical and periventricular white matter consi stent with small vessel ischemic disease. There is no evidence of hydrocephalus, intracranial hemorrhage, or extra-axial fluid collection. No abnormal enhancement is seen. The calvarium and overlying soft tissues are unremarkable. The visualized paranasal sinuses and masto id air cells are well aerated. IMPRESSION: No evidence of acute intracranial abnormality
--- NOTE | 2019-09-28 18:57 | OP ---
DATE OF PROCEDURE: 09/28/2019 PREOPERATIVE DIAGNOSIS: Recurrent nausea and vomiting with any oral intake. DESCRIPTION OF PROCEDURE: Informed consent was obtained from the patient. She was sedated with total intravenous anesthesia. The bite block was placed and the endoscope was advanced easily to the second portion of the duodenum and retroflexion was performed in the stomach. The esophagus had a very slight ring in the distal esophagus at the Z-line. There was a 2 cm sliding hiatal hernia present. The stomach was otherwise normal including retroflexed views. The first and second portions of the duodenum were normal. An 18-mm Savary dilator was passed over a guidewire throughout the entire esophagus and second-look endoscopy showed no change to indicate any significant stricture. The esophagus was otherwise normal. IMPRESSION: 1. A 2 cm sliding hiatal hernia. 2. Very slight ring at the Z-line, that was dilated to 18 mm with a Savary dilator over a guidewire; however, second-look endoscopy shows no change and this does not appear to have clinical significance. 3. Otherwise normal esophagogastroduodenoscopy. RECOMMENDATIONS: 1. CT of the brain to rule out any central process as a cause for recurrent vomiting. 2. Follow up with primary care for further treatment of her anxiety as this appears to be the primary source for her symptoms. 3. Advance her diet. 4. She can be discharged home when she is tolerating oral diet adequately. Job ID: [id number]
[2019-09-28] MEDS ORDERED: hydrALAZINE 20 MG/ML VIAL SLOW IVP PRN (19:07)
[2019-09-28] MEDS: ALPRAZolam 0.25 MG TAB PO PRN (19:17)
[2019-09-28] MEDS ORDERED: Amlodipine 10 MG TAB PO SCH (21:00)
[2019-09-28] MEDS ORDERED: Zolpidem Tartrate 5 MG TAB PO SCH (21:00)
[2019-09-29 07:23] VITALS: BP 147/72; TEMP 98.5
[2019-09-29] MEDS: Famotidine/PF 20 mg/2ml Vial SLOW IVP SCH (08:38)
[2019-09-29] MEDS: ALPRAZolam 0.25 MG TAB PO PRN (08:39)
--- NOTE | 2019-10-01 09:08 | DIS ---
DATE OF ADMISSION: 09/27/2019 DATE OF DISCHARGE: 09/29/2019 DISCHARGED MEDICATIONS: 1. Metoprolol succinate 50 mg twice a day. 2. Norvasc 10 mg daily. 3. Magnesium chloride 64 mg twice a day. 4. Telmisartan 20 mg at bedtime. 5. Protonix 40 mg daily. 6. Ambien as needed at bedtime. CONSULTATION: GI consult with Dr. Ayala. HOSPITAL COURSE: A 79-year-old female who had back surgery a few months ago, affected her baseline functional status, presented with vomiting, inability to tolerate p.o. intake. She had a CT scan as well as HIDA scan, which was normal. She followed with Dr. Earl in the GI clinic and reported that over four days of not having p.o. intake, so she was admitted for further evaluation. She is ruled out for COVID. Then she went through the EGD that showed 2 cm sliding hiatal hernia and Z-line that was dilated 18 mm[address] We did the CT scan of the brain to rule out any central process for recurrent vomiting and that is also negative. The patient is tolerating her diet and she is discharged to follow up with Dr. Earl in 2 to 3 weeks' time. DISCHARGE INSTRUCTIONS: Activity as tolerated. Regular diet. Follow up with primary care physician in 1 week. Follow up with Dr. Earl in 2 to 3 weeks. TIME SPENT: Discharge time took over 35 minutes. Job ID: [id number]
== END 2019-09-29 13:17 | disposition home or self-care (01) ==
LOC: ERS 15:41 → T4-B 20:21
PROVIDERS: ADMIT Internal Medicine; ATTEND Internal Medicine
PROC: 0D758ZZ Dilation of Esophagus, Via Natural or Artificial Opening Endoscopic (ICD-10-PCS; principal; 2019-09-29)
DX: K44.9 Diaphragmatic hernia without obstruction or gangrene (principal); K22.8 Other specified diseases of esophagus; I12.9 Hypertensive chronic kidney disease with stage 1 through stage 4 chronic kidney disease, or unspecified chronic kidney disease; N18.9 Chronic kidney disease, unspecified; F41.9 Anxiety disorder, unspecified; F32.9 Major depressive disorder, single episode, unspecified; K21.9 Gastro-esophageal reflux disease without esophagitis; G89.29 Other chronic pain; M54.5 Low back pain; Z79.899 Other long term (current) drug therapy; Z88.0 Allergy status to penicillin; Z88.8 Allergy status to other drugs, medicaments and biological substances; Z20.828 Contact with and (suspected) exposure to other viral communicable diseases
CPT/HCPCS: 36415; 36416; 70470; 71045; 80053; 81003; 81015; 83690; 83735; 84439; 84443; 84484; 85025; 87635; 93005; 96360; 96361; 96374; 96375; G0378; J0360; J2704; Q9967; S0028; U0003

== ENCOUNTER 2022-11-16 21:56 | Observation (INO) | payer MEDICARE, BC ==
[2022-11-16] MEDS ORDERED: Acetaminophen 650 MG Suppository PR PRN (23:01)
[2022-11-16] MEDS ORDERED: Ondansetron ODT 4 MG TAB PO PRN (23:01)
[2022-11-16] MEDS ORDERED: Calcium Carbonate 500 MG ChewTAB PO PRN (23:01)
[2022-11-16] MEDS ORDERED: Senokot S 8.6-50 MG TAB PO PRN (23:01)
[2022-11-16] MEDS ORDERED: Acetaminophen 325 MG TAB PO PRN (23:01)
[2022-11-16 23:37] VITALS: BMI 22.6
[2022-11-17] MEDS ORDERED: Ketorolac Tromethamine 30 MG/ML VIAL IVP PRN (00:32)
[2022-11-17] MEDS ORDERED: Zolpidem Tartrate 5 MG TAB PO PRN (00:41)
[2022-11-17 06:37] LABS: #Eosinphils 0.1 thou/uL (0.0-0.7); #Monocytes 0.8 thou/uL (0.11-0.59); #Neutrophils 4.4 thou/uL (1.40-6.50); %Basophils 0.3 % (0.0-1.0); %Eosinophils 1.1 % (0.0-10.0); %Lymphocytes 15.6 % (21.0-51.0); %Monocytes 12.2 % (0.0-10.0); %Neutrophils 70.5 % (42.0-75.0); Hematocrit 38.2 % (36.0-47.0); Hemoglobin 12.6 g/dL (12.0-16.0); Mean Corpuscular Hemoglobin 29.2 pg (27.0-31.0); Mean Corpuscular Volume 88.4 fl (78.0-98.0); Mean Platelet Volume 9.9 fL (7.4-10.4); Platelet Count 173 10x3/uL (130-400); RBC Distribution Width 13.1 % (11.5-14.5); Red Blood Cell (RBC) Count 4.32 mill/uL (4.20-5.40); White Blood Cell (WBC) Count 6.2 10x3/uL (4.8-10.8)
[2022-11-17 07:02] LABS: Anion Gap 14 mmol/L (10-20); BUN (Urea Nitrogen) 21 mg/dL (9.8-20.1); Calc. Creatinine Clearance 34 mL/min (70-130); Calcium 9.6 mg/dL (7.8-10.44); Carbon Dioxide 26 mmol/L (23-31); Chloride 99 mmol/L (98-107); Estimated GFR 46; Glucose 84 mg/dL (83-110); Potassium 4.1 mmol/L (3.5-5.1); Sodium 135 mmol/L (136-145)
[2022-11-17] MEDS ORDERED: Cholecalciferol 1,000 UNITS (25 MCG) TAB PO SCH (09:00)
[2022-11-17] MEDS ORDERED: Sertraline 100 MG TAB PO SCH (09:00)
[2022-11-17] MEDS ORDERED: Flecainide 50 MG TAB PO SCH ×2 (09:00)
[2022-11-17] MEDS ORDERED: Famotidine 20 MG TAB PO SCH (09:00)
[2022-11-17] MEDS ORDERED: Famotidine/PF 20 mg/2ml Vial SLOW IVP SCH (09:00)
[2022-11-17] MEDS ORDERED: Hydrochlorothiazide 25 MG TAB PO SCH (09:00)
[2022-11-17] MEDS ORDERED: Losartan 25 MG TAB PO SCH (09:00)
[2022-11-17] MEDS: Morphine 2 MG/ML VIAL SLOW IVP PRN ×2 (09:36→16:41)
[2022-11-17 12:45] VITALS: BP 130/78; TEMP 98.2
[2022-11-17] MEDS ORDERED: Amlodipine 10 MG TAB PO SCH (21:00)
== END 2022-11-17 17:31 | disposition home or self-care (01) ==
LOC: T4-B 22:33
PROVIDERS: ADMIT Student in an Organized Health Care Education/Training Program; ATTEND Internal Medicine
DX: S32.018A Other fracture of first lumbar vertebra, initial encounter for closed fracture (principal); S22.088A Other fracture of T11-T12 vertebra, initial encounter for closed fracture; I48.91 Unspecified atrial fibrillation; I10 Essential (primary) hypertension; F32.A Depression, unspecified; Z88.0 Allergy status to penicillin; Z88.8 Allergy status to other drugs, medicaments and biological substances; Z79.899 Other long term (current) drug therapy; Z79.01 Long term (current) use of anticoagulants; X58.XXXA Exposure to other specified factors, initial encounter
CPT/HCPCS: 80048; 85025; 96374; 96375; 96376; 97116; G0378 ×2; 36415; J1885; J2272

== ENCOUNTER 2023-08-10 10:37 | Emergency (ER) | payer MEDICARE, BC ==
[2023-08-10] MEDS ORDERED: Ondansetron PF 4 MG/2 ML Vial ONE (11:38)
[2023-08-10] MEDS ORDERED: Morphine 4 MG/ML VIAL ONE (11:38)
[2023-08-10 11:46] LABS: #Basophils 0.03 10x3/uL (0.0-0.2); #Eosinphils Less than 0.03 10x3/uL (0.0-0.7); %Basophils 0.3 % (0.0-1.0); %Eosinophils 0.2 % (0.0-10.0); %Lymphocytes 4.3 % (21.0-51.0); %Monocytes 4.5 % (0.0-10.0); %Neutrophils 90.3 % (42.0-75.0); Hematocrit 36.6 % (36.0-47.0); Hemoglobin 12.4 g/dL (12.0-16.0); Mean Corpuscular HGB CONC 33.9 g/dL (32.0-36.0); Mean Corpuscular Hemoglobin 30.5 pg (27.0-31.0); Mean Corpuscular Volume 89.9 fL (78.0-98.0); Mean Platelet Volume 9.5 fL (7.4-10.4); Platelet Count 205 10x3/uL (130-400); RBC Distribution Width 14.2 % (11.5-14.5); Red Blood Cell (RBC) Count 4.07 mill/uL (4.20-5.40)
[2023-08-10 12:05] LABS: ALT (SGPT) 9 U/L (8-55); AST (SGOT) 18 U/L (5-34); Albumin 3.6 g/dL (3.4-4.8); Alkaline Phosphatase 89 U/L (40-110); Anion Gap 15 mmol/L (10-20); BUN (Urea Nitrogen) 16 mg/dL (9.8-20.1); CK (CPK) 74 U/L (29-168); Calc. Creatinine Clearance 0 mL/min (70-130); Calcium 9.3 mg/dL (7.8-10.44); Carbon Dioxide 24 mmol/L (23-31); Chloride 99 mmol/L (98-107); Estimated GFR 66; Globulin 2.8 g/dL (2.4-3.5); Glucose 118 mg/dL (83-110); Lipase 13 U/L (8-78); Potassium 3.6 mmol/L (3.5-5.1); Protein, Total 6.4 g/dL (5.8-8.1); Sodium 134 mmol/L (136-145)
[2023-08-10 12:11] LABS: Troponin I 0.014 ng/mL (< 0.028)
[2023-08-10] MEDS ORDERED: HYDROcodone/Acetaminophen 10/325 mg Tablet ONE (13:29)
[2023-08-10 15:06] LABS: Bacteria/HPF None Seen HPF (None Seen); Bilirubin Negative (Negative); Blood, Urine Negative (Negative); CAUTI Indications for Culture Dysuria,urgency,freq; Clarity Clear (Clear); Glucose, Urine (Dipstick) Normal (Negative); Ketone, Urine Negative (Negative); Leukocyte Negative Leu/uL (Negative); Nitrite Negative (Negative); Protein, Urine (Dipstick) Negative (Neg-Trace); RBC/HPF None Seen HPF (0-3); Specific Gravity, Urine 1.034 (1.002-1.036); Squamous Epithelial None Seen HPF (0-3); Urobilinogen Normal mg/dL (Less than 2); WBC/HPF 0-3 HPF (0-3); pH, Urine 6.5 (5.0-9.0)
[2023-08-10 15:46] LABS: Urine Culture Reflex No No
== END 2023-08-10 16:25 | disposition home or self-care (01) ==
LOC: ERS 10:37
DX: S42.202A Unspecified fracture of upper end of left humerus, initial encounter for closed fracture (principal); S32.009A Unspecified fracture of unspecified lumbar vertebra, initial encounter for closed fracture; I10 Essential (primary) hypertension; Z79.01 Long term (current) use of anticoagulants; Z79.899 Other long term (current) drug therapy; W19.XXXA Unspecified fall, initial encounter
CPT/HCPCS: 36415; 70450; 71045; 71260; 72125; 74177; 80053; 81001; 82550; 83605; 83690; 84484; 85025; 93005; 96361; 96374; 96375; J2270; J2405